=== PATIENT | male | born 1955 | race African-American/Black ===

== ENCOUNTER 2017-07-04 10:47 | Inpatient (IN) | payer MEDICARE, MEDICAID ==
[~2017-07-04] VITALS: Ht 188 cm; Wt 63.1 kg
[~2017-07-04 10:47] MED LIST: ATEN-60 PO; INSREGI SC; LEVEMIR SC; METF-372 PO; RIS1T PO
[2017-07-04] MEDS ORDERED: SODIUM CHLORIDE 0.9% 1,000 ML IV ONE (11:30)
[2017-07-04 11:43] LABS: Urine RBC None Seen /hpf (0 - 3)
[2017-07-04] MEDS ORDERED: InsuLIN REG 1unit/0.01ml Soln (100units/ml) IV ONE (11:45)
[2017-07-04 12:03] LABS: Urine Bilirubin Negative (Negative); Urine Blood Negative /uL (Negative); Urine Glucose 4+ mg/dL (Normal); Urine Ketone Negative (Negative); Urine Nitrite Negative (Negative); Urine Urobilinogen Normal (Negative)
[2017-07-04 12:06] LABS: Urine Color Straw (Yellow)
[2017-07-04 12:08] LABS: Basophils # (auto) 0 uL; Basophils % (auto) 0.4 % (0.0-2.0); Eosinophils # (auto) 0 uL; Eosinophils % (auto) 0.3 % (0.0-7.0); Hematocrit 39.6 % (41.0-53.0); Hemoglobin 12.9 g/dL (13.5-17.5); Lymphocytes # (auto) 1.9 uL; Lymphocytes % (auto) 23.1 % (10.0-50.0); Mean Corpuscular Hemoglobin 28.1 pg (28.0-32.0); Mean Corpuscular Hgb Conc. 32.7 g/dL (32.0-36.0); Mean Platelet Volume 9.5 fL (6.9-10.8); Monocytes # (auto) 0.4 uL; Neutrophils # (auto) 5.7 uL; Neutrophils % (auto) 71.2 % (37.0-80.0); Nucleated Red Blood Cells % 0.1 %; Platelet Count (auto) 200 10^3/uL (140-450); White Blood Cell 8.1 10^3/uL (4.4-10.8)
[2017-07-04 12:12] LABS: Albumin 3.7 g/dL (3.4-5.0); BUN/Creatinine Ratio 11.7; Bilirubin, Total 0.3 mg/dL (0.2-1.0); Calcium 9.2 mg/dL (8.5-10.1); Potassium 4.4 mmol/L (3.5-5.1); Total Protein 7.4 g/dL (6.4-8.2)
[2017-07-04 13:15] LABS: REFLEX LACTIC ACID YES OR NO NO
[2017-07-04 14:06] LABS: Lactic Acid w/Reflex 3.7 mmol/L (0.4-2.0)
[2017-07-04 14:10] LABS: REFLEX LACTIC ACID YES OR NO NO
[2017-07-04] MEDS ORDERED: ATENOLOL 25 MG TAB PO ONE (15:45)
[2017-07-04] MEDS ORDERED: DEXTROSE (50%) 50ML SYRG IV PRN (15:45)
[2017-07-04] MEDS: SODIUM CHLORIDE 0.9% 1,000 ML IV SCH (16:31)
[2017-07-04] MEDS: InsuLIN REG 1unit/0.01ml Soln (100units/ml) SC SCH ×2 (16:46→22:47)
[2017-07-04] MEDS: ACCU-CHEK COMFORT CURVE STRIP VI SCH ×2 (16:46→22:48)
[2017-07-04] MEDS: metFORMIN HYDROCHLORIDE 500 MG TAB PO SCH (17:59)
[2017-07-04 20:00] VITALS: BP 148/95
[2017-07-04 21:47] VITALS: BP 145/95
[2017-07-04] MEDS: INSULIN DETEMIR(LEVEMIR) 1unit/0.01ml Soln (100units/ml) SC SCH (22:47)
[2017-07-05] MEDS ORDERED: AMI25T PO (04:01)
[2017-07-05] MEDS ORDERED: ASPI81CH59 PO (04:01)
[2017-07-05 04:58] VITALS: BP 137/74
[2017-07-05] MEDS: SODIUM CHLORIDE 0.9% 1,000 ML IV SCH ×2 (05:05→18:35)
[2017-07-05 05:40] LABS: Basophils # (auto) 0.1 uL; Basophils % (auto) 0.8 % (0.0-2.0); Eosinophils # (auto) 0.2 uL; Eosinophils % (auto) 2.3 % (0.0-7.0); Hematocrit 34.6 % (41.0-53.0); Hemoglobin 11.3 g/dL (13.5-17.5); Lymphocytes # (auto) 2.9 uL; Lymphocytes % (auto) 37.6 % (10.0-50.0); Mean Corpuscular Hemoglobin 27.6 pg (28.0-32.0); Mean Corpuscular Hgb Conc. 32.5 g/dL (32.0-36.0); Mean Corpuscular Volume 84.8 fL (80.0-100.0); Mean Platelet Volume 9.6 fL (6.9-10.8); Monocytes # (auto) 0.6 uL; Monocytes % (auto) 7.5 % (0.0-12.0); Neutrophils # (auto) 4.1 uL; Neutrophils % (auto) 51.8 % (37.0-80.0); Platelet Count (auto) 184 10^3/uL (140-450); Red Cell Distribution Width 13.9 % (11.8-14.3); White Blood Cell 7.8 10^3/uL (4.4-10.8)
[2017-07-05 05:42] LABS: Calcium 8.6 mg/dL (8.5-10.1); Potassium 4.6 mmol/L (3.5-5.1)
[2017-07-05] MEDS: ACCU-CHEK COMFORT CURVE STRIP VI SCH ×4 (06:31→22:00)
[2017-07-05] MEDS: metFORMIN HYDROCHLORIDE 500 MG TAB PO SCH ×2 (06:31→17:51)
[2017-07-05] MEDS: InsuLIN REG 1unit/0.01ml Soln (100units/ml) SC SCH ×4 (06:31→22:00)
[2017-07-05 09:00] VITALS: BP 123/80
[2017-07-05] MEDS: ASPirin-EC 81 mg tab PO SCH (10:43)
[2017-07-05] MEDS: risperiDONE 1 MG TAB PO SCH (10:44)
[2017-07-05] MEDS: ATENOLOL 25 MG TAB PO SCH (10:45)
[2017-07-05] MEDS: INSULIN DETEMIR(LEVEMIR) 1unit/0.01ml Soln (100units/ml) SC SCH ×2 (10:45→22:00)
[2017-07-05 13:00] VITALS: BP 144/95
[2017-07-05 17:00] VITALS: BP 120/78
[2017-07-05 22:00] VITALS: BP 108/60
[2017-07-06 05:00] VITALS: BP 117/75
[2017-07-06] MEDS: metFORMIN HYDROCHLORIDE 500 MG TAB PO SCH (06:10)
[2017-07-06] MEDS: InsuLIN REG 1unit/0.01ml Soln (100units/ml) SC SCH ×2 (07:05→11:33)
[2017-07-06] MEDS: ACCU-CHEK COMFORT CURVE STRIP VI SCH ×2 (07:06→11:32)
[2017-07-06 09:00] VITALS: BP 146/90
[2017-07-06] MEDS: risperiDONE 1 MG TAB PO SCH (10:08)
[2017-07-06] MEDS: ASPirin-EC 81 mg tab PO SCH (10:08)
[2017-07-06] MEDS: INSULIN DETEMIR(LEVEMIR) 1unit/0.01ml Soln (100units/ml) SC SCH (10:09)
[2017-07-06] MEDS: SODIUM CHLORIDE 0.9% 1,000 ML IV SCH (10:09)
[2017-07-06] MEDS: ATENOLOL 25 MG TAB PO SCH (10:09)
[2017-07-06] MEDS ORDERED: ATE25T PO (12:10)
[2017-07-06 12:24] VITALS: BP 146/90
[2017-07-06 13:00] VITALS: BP 140/85
== END 2017-07-06 15:11 | disposition home or self-care (01) | DRG 638 ==
LOC: EDBD 10:47 → ER 11:06 → OVERFLOW 11:07 → EAST 19:30
PROVIDERS: ADMIT Internal Medicine; ATTEND Internal Medicine
DX: E11.65 Type 2 diabetes mellitus with hyperglycemia (principal); Z68.1 Body mass index [BMI] 19.9 or less, adult; F20.9 Schizophrenia, unspecified; E87.1 Hypo-osmolality and hyponatremia; I10 Essential (primary) hypertension; F17.210 Nicotine dependence, cigarettes, uncomplicated; E86.0 Dehydration; Z79.4 Long term (current) use of insulin; Z82.49 Family history of ischemic heart disease and other diseases of the circulatory system; Z83.3 Family history of diabetes mellitus; Z91.19 Patient's noncompliance with other medical treatment and regimen; R63.6 Underweight
CPT/HCPCS: 36415; 71020; 80048; 80053; 81001; 82010; 82962; 83036; 83605; 85025; 96361; 96374; 99291; J1815

== ENCOUNTER 2017-08-28 15:16 | Inpatient (IN) | payer MEDICAID, MEDICARE ==
[~2017-08-28] VITALS: Ht 188 cm; Wt 81.6 kg
[~2017-08-28 15:16] MED LIST changes: +AMI25T PO; +ASPI81CH59 PO; +ATEN25TA PO; -LEVEMIR SC
[2017-08-28] MEDS ORDERED: SODIUM CHLORIDE 0.9% 1,000 ML IV ONE ×2 (16:11)
[2017-08-28] MEDS ORDERED: InsuLIN REG 1unit/0.01ml Soln (100units/ml) IV ONE (16:15)
[2017-08-28 17:45] LABS: Basophils # (auto) 0 uL; Basophils % (auto) 0.1 % (0.0-2.0); Eosinophils # (auto) 0 uL; Hematocrit 47.5 % (41.0-53.0); Hemoglobin 15.8 g/dL (13.5-17.5); Lymphocytes # (auto) 0.9 uL; Lymphocytes % (auto) 7.5 % (10.0-50.0); Mean Corpuscular Hemoglobin 31.9 pg (28.0-32.0); Mean Corpuscular Hgb Conc. 33.4 g/dL (32.0-36.0); Mean Corpuscular Volume 95.6 fL (80.0-100.0); Monocytes # (auto) 0.7 uL; Monocytes % (auto) 6.1 % (0.0-12.0); Neutrophils # (auto) 10.6 uL; Neutrophils % (auto) 86.3 % (37.0-80.0); Nucleated Red Blood Cells % 0.1 %; Platelet Count (auto) 253 10^3/uL (140-450); Red Blood Cells 4.96 10^6/uL (4.5-5.90); Red Cell Distribution Width 15.4 % (11.8-14.3); White Blood Cell 12.2 10^3/uL (4.4-10.8)
[2017-08-28 18:02] LABS: BUN/Creatinine Ratio 13.1; Bilirubin, Total 0.5 mg/dL (0.2-1.0); Calcium 8.5 mg/dL (8.5-10.1); Potassium 3.5 mmol/L (3.5-5.1); Total Protein 7.2 g/dL (6.4-8.2)
[2017-08-28] MEDS: SODIUM CHLORIDE 0.9% 1,000 ML IV SCH (22:27)
[2017-08-28] MEDS ORDERED: HYDROcodone-ACET 5/325MG TAB PO PRN (22:30)
[2017-08-28] MEDS ORDERED: DEXTROSE (50%) 50ML SYRG IV PRN (22:30)
[2017-08-28] MEDS ORDERED: TEMAZEPAM 15 MG CAP PO PRN (22:30)
[2017-08-28] MEDS ORDERED: ACETAMINOPHEN 325 MG TAB PO PRN (22:30)
[2017-08-28] MEDS ORDERED: ONDANSETRON HCL 4 MG/2 ML VIAL IV PRN (22:30)
[2017-08-28 22:39] LABS: Urine WBC None Seen /hpf (0 - 3)
[2017-08-28 22:45] LABS: Urine Bacteria NONE SEEN /hpf (None Seen); Urine Blood Negative /uL (Negative); Urine Specific Gravity 1.024 (1.001-1.035)
[2017-08-28] MEDS: ACCU-CHEK COMFORT CURVE STRIP VI SCH (23:24)
[2017-08-28] MEDS: InsuLIN REG 1unit/0.01ml Soln (100units/ml) SC SCH (23:28)
[2017-08-28 23:40] VITALS: BP 152/87
[2017-08-29] VITALS (7 sets, daily range): BP systolic 144–157; BP diastolic 79–99
[2017-08-29] MEDS: InsuLIN REG 1unit/0.01ml Soln (100units/ml) SC SCH ×3 (04:00→11:51)
[2017-08-29] MEDS: ACCU-CHEK COMFORT CURVE STRIP VI SCH ×4 (04:15→16:00)
[2017-08-29 06:33] LABS: Basophils # (auto) 0 uL; Basophils % (auto) 0.6 % (0.0-2.0); Eosinophils # (auto) 0.1 uL; Eosinophils % (auto) 1.3 % (0.0-7.0); Hemoglobin 11.3 g/dL (13.5-17.5); Lymphocytes # (auto) 2.2 uL; Lymphocytes % (auto) 31.1 % (10.0-50.0); Mean Corpuscular Hemoglobin 27.7 pg (28.0-32.0); Mean Corpuscular Hgb Conc. 33.1 g/dL (32.0-36.0); Mean Corpuscular Volume 83.8 fL (80.0-100.0); Monocytes # (auto) 0.7 uL; Monocytes % (auto) 9.5 % (0.0-12.0); Neutrophils # (auto) 4.1 uL; Neutrophils % (auto) 57.5 % (37.0-80.0); Nucleated Red Blood Cells % 0.1 %; Platelet Count (auto) 205 10^3/uL (140-450); Red Blood Cells 4.06 10^6/uL (4.5-5.90); Red Cell Distribution Width 13.3 % (11.8-14.3); White Blood Cell 7.2 10^3/uL (4.4-10.8)
[2017-08-29 06:53] LABS: Albumin 2.9 g/dL (3.4-5.0); Calcium 8.7 mg/dL (8.5-10.1); Potassium 3.5 mmol/L (3.5-5.1)
[2017-08-29 06:56] LABS: Bilirubin, Total 0.2 mg/dL (0.2-1.0); Total Protein 5.8 g/dL (6.4-8.2)
[2017-08-29] MEDS ORDERED: ENOXAPARIN SOD 40 MG/0.4 ML SYRINGE SC SCH (10:00)
[2017-08-29] MEDS ORDERED: FAMOTIDINE 20 MG TAB PO SCH (10:00)
[2017-08-29] MEDS ORDERED: ATENOLOL 50MG TABLET PO SCH (10:00)
[2017-08-29] MEDS ORDERED: risperiDONE 1 MG TAB PO SCH (10:00)
[2017-08-29] MEDS: SODIUM CHLORIDE 0.9% 1,000 ML IV SCH (15:07)
[2017-08-29] MEDS ORDERED: AMITRIPTYLINE HCL 25 MG TAB PO SCH (22:00)
== END 2017-08-29 19:00 | disposition home or self-care (01) | DRG 637 ==
LOC: ER 15:16 → EDBD 15:16 → OVERFLOW 15:17 → WEST WING 08-29 00:04
PROVIDERS: ADMIT Nurse Practitioner; ATTEND Nurse Practitioner
DX: E11.65 Type 2 diabetes mellitus with hyperglycemia (principal); G93.41 Metabolic encephalopathy; N39.0 Urinary tract infection, site not specified; F12.90 Cannabis use, unspecified, uncomplicated; F17.210 Nicotine dependence, cigarettes, uncomplicated; F20.9 Schizophrenia, unspecified; I10 Essential (primary) hypertension; Z83.3 Family history of diabetes mellitus; Z82.49 Family history of ischemic heart disease and other diseases of the circulatory system; Z88.0 Allergy status to penicillin; Y93.89 Activity, other specified; Y92.128 Other place in nursing home as the place of occurrence of the external cause; Y99.8 Other external cause status; W22.09XA Striking against other stationary object, initial encounter
CPT/HCPCS: 36415; 70450; 71045; 80053; 81001; 82962; 85025; 93005; 96360; J1815

== ENCOUNTER 2018-06-06 10:32 | Inpatient (IN) | payer MEDICARE ==
[~2018-06-06] VITALS: Ht 185.4 cm; Wt 123.6 kg
[~2018-06-06 10:32] MED LIST changes: +ATE50T PO; -ATEN-60 PO; -ATEN25TA PO; -INSREGI SC; +LISI10TA6 PO
[2018-06-06 11:17] LABS: Basophils # (auto) 0 uL; Basophils % (auto) 0.4 % (0.0-2.0); Eosinophils # (auto) 0.1 uL; Eosinophils % (auto) 0.8 % (0.0-7.0); Hematocrit 36.4 % (41.0-53.0); Hemoglobin 11.8 g/dL (13.5-17.5); Lymphocytes # (auto) 1.9 uL; Lymphocytes % (auto) 18.5 % (10.0-50.0); Mean Corpuscular Hemoglobin 27.3 pg (28.0-32.0); Mean Corpuscular Hgb Conc. 32.6 g/dL (32.0-36.0); Mean Corpuscular Volume 83.8 fL (80.0-100.0); Monocytes # (auto) 0.6 uL; Monocytes % (auto) 5.4 % (0.0-12.0); Neutrophils # (auto) 7.8 uL; Neutrophils % (auto) 74.9 % (37.0-80.0); Platelet Count (auto) 185 10^3/uL (140-450); Red Blood Cells 4.34 10^6/uL (4.5-5.90); Red Cell Distribution Width 14.8 % (11.8-14.3); White Blood Cell 10.4 10^3/uL (4.4-10.8)
[2018-06-06 11:29] LABS: Albumin 3.4 g/dL (3.4-5.0); BUN/Creatinine Ratio 14.9; Calcium 8.7 mg/dL (8.5-10.1); Potassium 4.1 mmol/L (3.5-5.1)
[2018-06-06 11:32] LABS: Bilirubin, Total 0.3 mg/dL (0.2-1.0); Total Protein 6.7 g/dL (6.4-8.2)
[2018-06-06 13:08] LABS: Urine Bacteria NONE SEEN /hpf (None Seen); Urine Blood Negative /uL (Negative); Urine Hyaline Cast FEW /lpf (0 - 2); Urine Specific Gravity 1.014 (1.001-1.035); Urine WBC 1 /hpf (0 - 3)
[2018-06-06 13:21] LABS: Alcohol, Urine < 3.0 mg/dL (0-5); Amphetamine Screen, Urine NEGATIVE (NEGATIVE); Barbiturate Scree,Urine NEGATIVE (NEGATIVE); Benzodiazephine Screen, Urine NEGATIVE (NEGATIVE); Cannabinoid Screen, Urine NEGATIVE (NEGATIVE); Cocaine Screen, Urine NEGATIVE (NEGATIVE); Opiate Scree,Urine NEGATIVE (NEGATIVE); Phencyclidine Screen, Urine NEGATIVE (NEGATIVE)
[2018-06-06] MEDS ORDERED: ACETAMINOPHEN 500 MG TAB PO PRN (15:00)
[2018-06-06] MEDS ORDERED: LORazepam 0.5 MG TAB PO PRN (15:00)
[2018-06-06] MEDS ORDERED: DEXTROSE (50%) 50ML SYRG IV PRN (15:00)
[2018-06-06] MEDS ORDERED: LABETALOL HCL 5 MG/ML ML 20ML VIAL IV PRN (15:00)
[2018-06-06] MEDS ORDERED: ONDANSETRON HCL 4 MG/2 ML VIAL IV PRN (15:00)
[2018-06-06] MEDS ORDERED: MORPHINE SULFATE 4 MG/ML SYR/VIAL IV PRN (15:00)
[2018-06-06] MEDS ORDERED: TEMAZEPAM 15 MG CAP PO PRN (15:00)
[2018-06-06] MEDS ORDERED: NITROGLYCERIN 0.4 MG SL TAB SL PRN (15:00)
[2018-06-06] MEDS ORDERED: LACTULOSE 20Gm/30ML SOLN PO PRN (15:00)
[2018-06-06] MEDS ORDERED: ATENOLOL 25 MG TAB PO ONE (15:15)
[2018-06-06] MEDS: SODIUM CHLORIDE 0.9% 1,000 ML IV SCH (15:27)
[2018-06-06 17:00] VITALS: BP 168/98
[2018-06-06] MEDS: InsuLIN REG 1unit/0.01ml Soln (100units/ml) SC SCH ×2 (17:00→22:33)
[2018-06-06] MEDS: ACCU-CHEK COMFORT CURVE STRIP VI SCH ×2 (17:00→22:00)
[2018-06-06 20:00] VITALS: BP 147/84
[2018-06-06 22:00] VITALS: BP 147/84
[2018-06-06] MEDS: AMITRIPTYLINE HCL 25 MG TAB PO SCH (22:21)
[2018-06-06] MEDS: ATENOLOL 25 MG TAB PO SCH (22:22)
[2018-06-06] MEDS: ATORVASTATIN 20 MG TAB PO SCH (22:23)
[2018-06-06] MEDS: risperiDONE 1 MG TAB PO SCH (22:23)
[2018-06-07] VITALS (7 sets, daily range): BP systolic 139–160; BP diastolic 74–94
[2018-06-07] MEDS: SODIUM CHLORIDE 0.9% 1,000 ML IV SCH ×2 (06:27→15:56)
[2018-06-07] MEDS: ACCU-CHEK COMFORT CURVE STRIP VI SCH ×4 (06:27→22:00)
[2018-06-07] MEDS: InsuLIN REG 1unit/0.01ml Soln (100units/ml) SC SCH ×4 (06:28→22:47)
[2018-06-07 08:07] LABS: Cholesterol 106 mg/dL (< 200); HDL Cholesterol 57 mg/dL (40-59); LDL Cholesterol 48 mg/dL (< 100); Triglycerides 60 mg/dL (< 150)
[2018-06-07] MEDS ORDERED: PATIENTS OWN MEDICATION (Lisinopril 10 MG) PO SCH (10:00)
[2018-06-07] MEDS ORDERED: ATENOLOL 50 MG TAB PO SCH (10:00)
[2018-06-07] MEDS ORDERED: ENALAPRIL MALEATE 2.5 MG TAB PO SCH (10:00)
[2018-06-07] MEDS ORDERED: PATIENTS OWN MEDICATION (Aspirin (Aspirin Low Dose) 1 TAB) PO SCH (10:00)
[2018-06-07] MEDS: ASPirin 81 mg TAB PO SCH (10:00)
[2018-06-07] MEDS: traMADol HCL 50 MG TAB PO PRN ×2 (11:14→17:05)
[2018-06-07] MEDS: ENOXAPARIN SOD 40 MG/0.4 ML SYRINGE SC SCH (11:38)
[2018-06-07] MEDS: PANTOPRAZOLE 40 MG TAB PO SCH (11:39)
[2018-06-07] MEDS: LISINOPRIL 10 MG TAB PO SCH (11:40)
[2018-06-07] MEDS: ATENOLOL 25 MG TAB PO SCH ×2 (11:42→22:46)
[2018-06-07] MEDS: MEPERIDINE HCL (50 MG/ML) 1 ML VIAL IV PRN ×2 (12:05→18:00)
[2018-06-07] MEDS: ATORVASTATIN 20 MG TAB PO SCH (22:45)
[2018-06-07] MEDS: AMITRIPTYLINE HCL 25 MG TAB PO SCH (22:45)
[2018-06-07] MEDS: risperiDONE 1 MG TAB PO SCH (22:46)
[2018-06-08] VITALS (7 sets, daily range): BP systolic 126–178; BP diastolic 65–101
[2018-06-08 06:09] LABS: INR 1.03 (0.9-1.15); Partial Thromboplastin Time 25.1 sec (23.78-33.04)
[2018-06-08] MEDS: InsuLIN REG 1unit/0.01ml Soln (100units/ml) SC SCH ×4 (07:00→22:03)
[2018-06-08] MEDS: ACCU-CHEK COMFORT CURVE STRIP VI SCH ×4 (07:00→22:03)
[2018-06-08] MEDS: SODIUM CHLORIDE 0.9% 1,000 ML IV SCH ×2 (07:51→17:07)
[2018-06-08] MEDS: ENOXAPARIN SOD 40 MG/0.4 ML SYRINGE SC SCH (10:00)
[2018-06-08] MEDS: LISINOPRIL 10 MG TAB PO SCH (10:04)
[2018-06-08] MEDS: PANTOPRAZOLE 40 MG TAB PO SCH (10:06)
[2018-06-08] MEDS: ATENOLOL 25 MG TAB PO SCH ×2 (10:07→21:58)
[2018-06-08] MEDS: ASPirin 81 mg TAB PO SCH (10:14)
[2018-06-08] MEDS ORDERED: LIDOCAINE 2%HCL (LOCAL ANESTH.) INJ 10ml MDV ONE (12:29)
[2018-06-08] MEDS ORDERED: IODIXANOL 320MG/ML 100ML BTL IV ONE (12:29)
[2018-06-08] MEDS ORDERED: GLYCOPYRROLATE 0.2 MG/ML 1ML VIAL ONE (12:42)
[2018-06-08] MEDS ORDERED: ANGIOMAX 250 MG VIAL IV ONE (12:43)
[2018-06-08] MEDS ORDERED: MIDAZOLAM HCL 1MG/1ML-2 ML VIAL ONE (12:43)
[2018-06-08] MEDS ORDERED: SODIUM CHL 0.9% 0 ML ONE (12:43)
[2018-06-08] MEDS ORDERED: DOPamine 1600MCG/ML D5W 0 ML IV ONE (12:46)
[2018-06-08] MEDS ORDERED: PHENYLEPHRINE HCL 10 MG/ML VL ONE (12:46)
[2018-06-08] MEDS ORDERED: ATROPINE SULF 1 MG/10ml SYR ONE (12:46)
[2018-06-08] MEDS ORDERED: NITROGLYCERIN 0.4MG/DOSE SPRAY 4.9GM ONE (13:05)
[2018-06-08] MEDS: risperiDONE 1 MG TAB PO SCH (21:58)
[2018-06-08] MEDS: AMITRIPTYLINE HCL 25 MG TAB PO SCH (21:59)
[2018-06-08] MEDS: ATORVASTATIN 20 MG TAB PO SCH (21:59)
[2018-06-09 05:00] VITALS: BP_SYST 164; BP_SYST 165; BP_SYST 182; BP_DIAS 101; BP_DIAS 81; BP_DIAS 95
[2018-06-09] MEDS: SODIUM CHLORIDE 0.9% 1,000 ML IV SCH ×3 (05:26→21:43)
[2018-06-09] MEDS: ACCU-CHEK COMFORT CURVE STRIP VI SCH ×4 (06:28→21:38)
[2018-06-09] MEDS: InsuLIN REG 1unit/0.01ml Soln (100units/ml) SC SCH ×4 (06:32→21:38)
[2018-06-09 08:00] VITALS: BP 187/99
[2018-06-09 09:00] VITALS: BP 187/99
[2018-06-09] MEDS ORDERED: cloNIDine HCL 0.1 MG TAB PO ONE (09:00)
[2018-06-09] MEDS ORDERED: cloNIDine HCL 0.1 MG TAB ONE (09:56)
[2018-06-09] MEDS: ATENOLOL 25 MG TAB PO SCH ×2 (10:00→21:29)
[2018-06-09] MEDS: LISINOPRIL 10 MG TAB PO SCH (10:10)
[2018-06-09] MEDS: ASPirin 81 mg TAB PO SCH (10:10)
[2018-06-09] MEDS: PANTOPRAZOLE 40 MG TAB PO SCH (10:11)
[2018-06-09] MEDS: ENOXAPARIN SOD 40 MG/0.4 ML SYRINGE SC SCH (10:11)
[2018-06-09 13:00] VITALS: BP 184/95
[2018-06-09 16:50] VITALS: BP 161/89
[2018-06-09] MEDS: risperiDONE 1 MG TAB PO SCH (21:28)
[2018-06-09] MEDS: AMITRIPTYLINE HCL 25 MG TAB PO SCH (21:29)
[2018-06-09] MEDS: ATORVASTATIN 20 MG TAB PO SCH (21:29)
[2018-06-09 22:00] VITALS: BP 140/65
[2018-06-10 06:03] VITALS: BP 153/85
[2018-06-10] MEDS: ACCU-CHEK COMFORT CURVE STRIP VI SCH ×2 (06:28→11:23)
[2018-06-10] MEDS: InsuLIN REG 1unit/0.01ml Soln (100units/ml) SC SCH ×2 (06:38→11:23)
[2018-06-10 08:00] VITALS: BP 170/86
[2018-06-10 08:45] VITALS: BP 170/86
[2018-06-10] MEDS: ATENOLOL 25 MG TAB PO SCH (10:09)
[2018-06-10] MEDS: ENOXAPARIN SOD 40 MG/0.4 ML SYRINGE SC SCH (10:09)
[2018-06-10] MEDS: ASPirin 81 mg TAB PO SCH (10:09)
[2018-06-10] MEDS: LISINOPRIL 10 MG TAB PO SCH (10:09)
[2018-06-10] MEDS: PANTOPRAZOLE 40 MG TAB PO SCH (10:10)
[2018-06-10 11:41] VITALS: BP 170/86
[2018-06-10 12:15] VITALS: BP 182/98
[2018-06-10] MEDS ORDERED: cloNIDine HCL 0.1 MG TAB PO ONE (13:15)
[2018-06-10 16:01] VITALS: BP 155/89
== END 2018-06-10 16:15 | disposition home or self-care (01) | DRG 68 ==
LOC: EDBD 10:32 → EDUNIT# 10:32 → ER 10:32 → TELE 14:59 → TELE-EAST 17:20
PROVIDERS: ADMIT Internal Medicine; ATTEND Family Medicine
PROC: B3181ZZ Fluoroscopy of Bilateral Internal Carotid Arteries using Low Osmolar Contrast (ICD-10-PCS; principal; 2018-06-07)
DX: I65.21 Occlusion and stenosis of right carotid artery (principal); F31.30 Bipolar disorder, current episode depressed, mild or moderate severity, unspecified; R55 Syncope and collapse; E11.9 Type 2 diabetes mellitus without complications; F20.9 Schizophrenia, unspecified; I10 Essential (primary) hypertension; D50.8 Other iron deficiency anemias; E78.00 Pure hypercholesterolemia, unspecified; F17.210 Nicotine dependence, cigarettes, uncomplicated; F41.9 Anxiety disorder, unspecified; Z65.3 Problems related to other legal circumstances; Z82.49 Family history of ischemic heart disease and other diseases of the circulatory system; Z83.3 Family history of diabetes mellitus; Z79.899 Other long term (current) drug therapy; Z79.82 Long term (current) use of aspirin; Z88.0 Allergy status to penicillin
CPT/HCPCS: 36415; 70450; 70545; 70551; 71045; 80053; 80061; 80307; 81001; 82550; 82607; 82962; 83036; 83735; 84443; 84484; 85025; 85379; 85610; 85652; 85730; 86141; 86850; 86900; 86901; 93005; 93306; 93886; 94761; 99152; A6257; G0378; J1815; J2001; J2250; Q9967

== ENCOUNTER 2018-10-05 18:03 | Emergency (ER) | payer MEDICARE ==
[~2018-10-05] VITALS: Ht 188 cm; Wt 81.6 kg
[2018-10-05] MEDS ORDERED: SODIUM CHLORIDE 0.9% 500 ML IVB ONE (18:22)
[2018-10-05] MEDS ORDERED: cloNIDine HCL 0.1 MG TAB PO ONE (21:15)
[2018-10-05 21:30] LABS: Basophils # (auto) 0 uL; Basophils % (auto) 0.2 % (0.0-2.0); Eosinophils # (auto) 0.1 uL; Eosinophils % (auto) 0.9 % (0.0-7.0); Hematocrit 39.6 % (41.0-53.0); Hemoglobin 12.8 g/dL (13.5-17.5); Lymphocytes # (auto) 1.6 uL; Lymphocytes % (auto) 19.1 % (10.0-50.0); Mean Corpuscular Hemoglobin 27.4 pg (28.0-32.0); Mean Corpuscular Hgb Conc. 32.4 g/dL (32.0-36.0); Mean Corpuscular Volume 84.3 fL (80.0-100.0); Monocytes # (auto) 0.4 uL; Monocytes % (auto) 5.5 % (0.0-12.0); Neutrophils % (auto) 74.3 % (37.0-80.0); Platelet Count (auto) 169 10^3/uL (140-450); Red Blood Cells 4.69 10^6/uL (4.5-5.90); Red Cell Distribution Width 13.7 % (11.8-14.3); White Blood Cell 8.1 10^3/uL (4.4-10.8)
[2018-10-05 21:31] LABS: Alanine Aminotransferase 24 U/L (16-61); Albumin 3.2 g/dL (3.4-5.0); Anion Gap 6 (5-15); Aspartate Aminotransferase 12 U/L (15-37); BUN/Creatinine Ratio 11.4; Blood Urea Nitrogen 13 mg/dL (7-18); Calcium 8.2 mg/dL (8.5-10.1); Carbon Dioxide 28 mmol/L (21-32); Chloride 100 mmol/L (98-107); GFR African American 84 mL/min; GFR Non-African American 69 mL/min; Magnesium 1.9 mg/dL (1.6-2.6); Potassium 4.6 mmol/L (3.5-5.1); Sodium 134 mmol/L (136-145)
[2018-10-05 21:36] LABS: Alkaline Phosphatase 130 U/L (45-117); Bilirubin, Total 0.3 mg/dL (0.2-1.0); Total Protein 6.7 g/dL (6.4-8.2)
[2018-10-05 21:48] LABS: INR 0.98 (0.9-1.15); Partial Thromboplastin Time 22.9 sec (23.78-33.04); Prothrombin Time 10.5 sec (9.27-12.13)
[2018-10-05 21:52] VITALS: BP 163/93
[2018-10-05 21:53] LABS: Glucose 491 mg/dL (74-106)
[2018-10-05] MEDS ORDERED: InsuLIN REG 1unit/0.01ml Soln (100units/ml) IV ONE (22:15)
[2018-10-05] MEDS ORDERED: LABETALOL HCL 5 MG/ML ML 20ML VIAL IV ONE (22:15)
[2018-10-05] MEDS ORDERED: InsuLIN REG 1unit/0.01ml Soln (100units/ml) ONE (22:20)
== END 2018-10-06 00:18 | disposition home or self-care (01) ==
LOC: ER 18:03 → EDBD 18:03 → ER 10-06 00:18
DX: R53.1 Weakness (principal); I16.0 Hypertensive urgency; I10 Essential (primary) hypertension; F17.210 Nicotine dependence, cigarettes, uncomplicated; F12.10 Cannabis abuse, uncomplicated; J45.909 Unspecified asthma, uncomplicated; E11.9 Type 2 diabetes mellitus without complications; Z86.73 Personal history of transient ischemic attack (TIA), and cerebral infarction without residual deficits; Z88.0 Allergy status to penicillin
CPT/HCPCS: 36415; 71045; 80053; 82140; 82962; 83735; 84484; 85025; 85610; 85730; 93005; 96374; 99284; J1815; J7040

== ENCOUNTER 2019-01-23 11:21 | Emergency (ER) | payer SELFPAY ==
[~2019-01-23] VITALS: Ht 188 cm; Wt 81.2 kg
[2019-01-23 11:59] LABS: Basophils # (auto) 0 uL; Basophils % (auto) 0.5 % (0.0-2.0); Eosinophils # (auto) 0.1 uL; Hematocrit 36.6 % (41.0-53.0); Lymphocytes # (auto) 1.6 uL; Lymphocytes % (auto) 30.1 % (10.0-50.0); Mean Corpuscular Hemoglobin 27.6 pg (28.0-32.0); Mean Corpuscular Hgb Conc. 32.8 g/dL (32.0-36.0); Mean Corpuscular Volume 83.9 fL (80.0-100.0); Monocytes # (auto) 0.5 uL; Monocytes % (auto) 8.7 % (0.0-12.0); Neutrophils # (auto) 3.1 uL; Neutrophils % (auto) 59.7 % (37.0-80.0); Nucleated Red Blood Cells % 0.1 %; Platelet Count (auto) 170 10^3/uL (140-450); Red Blood Cells 4.35 10^6/uL (4.5-5.90); Red Cell Distribution Width 14.6 % (11.8-14.3); White Blood Cell 5.3 10^3/uL (4.4-10.8)
[2019-01-23 12:20] LABS: Albumin 3.1 g/dL (3.4-5.0); Anion Gap 5 (5-15); Blood Urea Nitrogen 11 mg/dL (7-18); Calcium 8.4 mg/dL (8.5-10.1); Carbon Dioxide 27 mmol/L (21-32); Chloride 108 mmol/L (98-107); Magnesium 1.9 mg/dL (1.6-2.6); Potassium 3.9 mmol/L (3.5-5.1); Sodium 140 mmol/L (136-145)
[2019-01-23 12:26] LABS: Alanine Aminotransferase 43 U/L (16-61); Alkaline Phosphatase 167 U/L (45-117); Aspartate Aminotransferase 20 U/L (15-37); Bilirubin, Total 0.3 mg/dL (0.2-1.0); GFR African American 87 mL/min; GFR Non-African American 72 mL/min; Total Protein 6.3 g/dL (6.4-8.2)
[2019-01-23 12:36] LABS: Glucose 477 mg/dL (74-106)
[2019-01-23 17:35] VITALS: BP 188/101
== END 2019-01-23 20:18 | disposition home or self-care (01) ==
LOC: EDBD 11:21 → ER 11:27
DX: E11.65 Type 2 diabetes mellitus with hyperglycemia (principal); J45.909 Unspecified asthma, uncomplicated; E11.9 Type 2 diabetes mellitus without complications; F17.210 Nicotine dependence, cigarettes, uncomplicated; F12.10 Cannabis abuse, uncomplicated; Z88.0 Allergy status to penicillin; Z90.89 Acquired absence of other organs
CPT/HCPCS: 36415; 71046; 80053; 82962; 83735; 84484; 85025; 93005

== ENCOUNTER 2019-02-06 15:47 | Inpatient (IN) | payer SELFPAY ==
[~2019-02-06] VITALS: Ht 188 cm; Wt 60.4 kg
[2019-02-06] MEDS ORDERED: SODIUM CHLORIDE 0.9% 1,000 ML IV ONE ×2 (16:29)
[2019-02-06] MEDS ORDERED: InsuLIN REG 1unit/0.01ml Soln (100units/ml) IV ONE (16:30)
[2019-02-06 16:55] LABS: Basophils # (auto) 0 uL; Basophils % (auto) 0.5 % (0.0-2.0); Eosinophils # (auto) 0.1 uL; Eosinophils % (auto) 0.7 % (0.0-7.0); Hematocrit 37.5 % (41.0-53.0); Hemoglobin 12.3 g/dL (13.5-17.5); Lymphocytes # (auto) 1.5 uL; Mean Corpuscular Hemoglobin 27.6 pg (28.0-32.0); Mean Corpuscular Hgb Conc. 32.9 g/dL (32.0-36.0); Mean Corpuscular Volume 83.9 fL (80.0-100.0); Monocytes # (auto) 0.4 uL; Monocytes % (auto) 5.2 % (0.0-12.0); Neutrophils # (auto) 6.3 uL; Neutrophils % (auto) 75.6 % (37.0-80.0); Nucleated Red Blood Cells % 0.1 %; Platelet Count (auto) 159 10^3/uL (140-450); Red Blood Cells 4.47 10^6/uL (4.5-5.90); Red Cell Distribution Width 14.3 % (11.8-14.3); White Blood Cell 8.3 10^3/uL (4.4-10.8)
[2019-02-06 16:57] LABS: Urine Bacteria NONE SEEN /hpf (None Seen); Urine Blood Negative /uL (Negative); Urine Specific Gravity 1.012 (1.001-1.035); Urine WBC <1 /hpf (0 - 3)
[2019-02-06 17:19] LABS: Alanine Aminotransferase 51 U/L (16-61); Albumin 3.4 g/dL (3.4-5.0); Anion Gap 8 (5-15); Blood Urea Nitrogen 13 mg/dL (7-18); Calcium 8.5 mg/dL (8.5-10.1); Carbon Dioxide 28 mmol/L (21-32); Chloride 93 mmol/L (98-107); Glucose 396 mg/dL (74-106); Sodium 129 mmol/L (136-145)
[2019-02-06 17:24] LABS: Alkaline Phosphatase 131 U/L (45-117); Aspartate Aminotransferase 18 U/L (15-37); Bilirubin, Total 0.3 mg/dL (0.2-1.0); GFR African American 89 mL/min; GFR Non-African American 74 mL/min; Total Protein 6.6 g/dL (6.4-8.2)
[2019-02-06] MEDS ORDERED: ACETAMINOPHEN 500 MG TAB PO PRN (18:30)
[2019-02-06] MEDS ORDERED: NITROGLYCERIN 0.4 MG SL TAB SL PRN (18:30)
[2019-02-06] MEDS ORDERED: MORPHINE SULF INJ 2 MG/ML SYRINGE 1ML IV PRN ×2 (18:30)
[2019-02-06] MEDS ORDERED: HYDROcodone-ACET 5/325MG TAB PO PRN (18:30)
[2019-02-06] MEDS ORDERED: ONDANSETRON HCL 4 MG/2 ML VIAL IV PRN (18:30)
[2019-02-06] MEDS: SODIUM CHLORIDE 0.9% 1,000 ML IV SCH (18:34)
--- NOTE | 2019-02-06 21:45 | NUR ---
PT ARRIVED ON UNIT PT ARRIVED TO BE 288B VIA WHEEL CHAIR PT IS A/OX4 WITH NO S/S OF DISTRESS OR SOB
[2019-02-06 21:50] VITALS: BP 162/97
--- NOTE | 2019-02-06 22:15 | NUR ---
PAGED HOSPITALIST REGARDING PTS LACK OF INSULIN SLIDING SCALE WITH ADMISSION DX OF HYPERGLYCEMIA PT IS A/OX4 WITH NO S/S OF DISTRESS, WILL CONTINUE TO MONITOR
[2019-02-06] MEDS: cloNIDine HCL 0.1 MG TAB PO PRN (22:28)
[2019-02-06] MEDS ORDERED: ARIP1TAB7 PO (22:30)
--- NOTE | 2019-02-06 22:35 | NUR ---
HOSPITALIST CALLED IMPLEMENTED MODERATE ACHS INSULIN ORDERS, AND TO TAKE BLOOD SUGAR NOW
[2019-02-06] MEDS ORDERED: DEXTROSE (50%) 50ML SYRG IV PRN (23:00)
[2019-02-06] MEDS ORDERED: InsuLIN REG 1unit/0.01ml Soln (100units/ml) SC ONE (23:45)
[2019-02-07 04:31] VITALS: BP 142/79
[2019-02-07] MEDS: SODIUM CHLORIDE 0.9% 1,000 ML IV SCH (05:44)
[2019-02-07] MEDS: ACCU-CHEK COMFORT CURVE STRIP VI SCH ×2 (06:02→12:20)
[2019-02-07] MEDS: InsuLIN REG 1unit/0.01ml Soln (100units/ml) SC SCH ×2 (06:03→12:21)
--- NOTE | 2019-02-07 07:20 | NUR ---
Opening Shift Note Assumed care of patient, awake and alert. No S/S of distress, SOB or pain. Bed in lowest and locked position with side rails up x2. Instructed on POC and to call for assist PRN, will continue to monitor for changes Q1hr and PRN.
[2019-02-07 08:57] LABS: BUN/Creatinine Ratio 12.9; Calcium 9.4 mg/dL (8.5-10.1); Potassium 4.3 mmol/L (3.5-5.1)
[2019-02-07 09:21] VITALS: BP 186/87
[2019-02-07 09:28] LABS: Basophils # (auto) 0 uL; Basophils % (auto) 0.6 % (0.0-2.0); Eosinophils # (auto) 0.2 uL; Eosinophils % (auto) 1.9 % (0.0-7.0); Hematocrit 44.3 % (41.0-53.0); Hemoglobin 14.5 g/dL (13.5-17.5); Lymphocytes # (auto) 2.4 uL; Lymphocytes % (auto) 28.7 % (10.0-50.0); Mean Corpuscular Hemoglobin 27.6 pg (28.0-32.0); Mean Corpuscular Hgb Conc. 32.8 g/dL (32.0-36.0); Mean Corpuscular Volume 84.2 fL (80.0-100.0); Monocytes # (auto) 0.4 uL; Monocytes % (auto) 4.3 % (0.0-12.0); Neutrophils # (auto) 5.5 uL; Neutrophils % (auto) 64.5 % (37.0-80.0); Platelet Count (auto) 182 10^3/uL (140-450); Red Blood Cells 5.27 10^6/uL (4.5-5.90); Red Cell Distribution Width 14.6 % (11.8-14.3); White Blood Cell 8.5 10^3/uL (4.4-10.8)
[2019-02-07] MEDS: cloNIDine HCL 0.1 MG TAB PO PRN (09:43)
[2019-02-07] MEDS ORDERED: FAMOTIDINE 20 MG TAB PO SCH (10:00)
[2019-02-07] MEDS ORDERED: OLANZapine 5 MG TAB PO SCH (10:00)
--- NOTE | 2019-02-07 13:10 | NUR ---
DR. LE AT BEDSIDE SPEAKING TO PT ABOUT POC.
[2019-02-07 13:35] VITALS: BP 145/77
--- NOTE | 2019-02-07 14:30 | NUR ---
CALLED BOARD AND CARE THAT PATIENT RESIDES. CONFIRMED THAT PATIENT STAYS AT THE BOARD AND [facility] AND NOTIFIED KORY THAT THE PATIENT IS BEING DISCHARGE.
--- NOTE | 2019-02-07 15:45 | NUR ---
Discharge instructions given as ordered. Encourage to follow up with PMD or URGENT CARE as instructed. All questions and concerns addressed. Patient verbalized understanding. Medication reconciliation form completed and copy given to patient. No Home medications held in Pharmacy. Pt denied vaccines. IV removed with catheter intact, pressure dressing applied.
--- NOTE | 2019-02-07 15:50 | NUR ---
CALLED FOR TAXI. ETA 20-30 MIN.
--- NOTE | 2019-02-07 16:27 | NUR ---
Patient taken to taxi via wheelchair with all personal belongings, accompanied by staff. No distress noted at time of departure.
[2019-02-07] MEDS ORDERED: InsuLIN REG 1unit/0.01ml Soln (100units/ml) SC SCH (22:00)
== END 2019-02-07 16:35 | disposition home or self-care (01) | DRG 638 ==
LOC: ER 15:47 → OVERFLOW 15:48 → WEST WING 21:53
PROVIDERS: ADMIT Nurse Practitioner Acute Care; ATTEND Nurse Practitioner Acute Care
DX: E11.65 Type 2 diabetes mellitus with hyperglycemia (principal); J98.11 Atelectasis; E86.0 Dehydration; K21.9 Gastro-esophageal reflux disease without esophagitis; F25.9 Schizoaffective disorder, unspecified; D64.9 Anemia, unspecified; I10 Essential (primary) hypertension; F17.210 Nicotine dependence, cigarettes, uncomplicated; Z88.0 Allergy status to penicillin; Z79.84 Long term (current) use of oral hypoglycemic drugs; Z79.899 Other long term (current) drug therapy; Z90.89 Acquired absence of other organs; Z82.49 Family history of ischemic heart disease and other diseases of the circulatory system; Z83.3 Family history of diabetes mellitus; Z79.82 Long term (current) use of aspirin; Z72.89 Other problems related to lifestyle
CPT/HCPCS: 36415; 71045; 80048; 80053; 81001; 82962; 83036; 84484; 85025; 96361; 96374; G0378; J1815

== ENCOUNTER 2019-04-14 14:50 | Emergency (ER) | payer SELFPAY ==
[~2019-04-14] VITALS: Ht 185.4 cm; Wt 68.0 kg
[~2019-04-14 14:50] MED LIST changes: +ARIP1TAB7 PO
[2019-04-14 16:39] LABS: Basophils # (auto) 0 uL; Basophils % (auto) 0.6 % (0.0-2.0); Eosinophils # (auto) 0.1 uL; Eosinophils % (auto) 2.1 % (0.0-7.0); Hemoglobin 12.1 g/dL (13.5-17.5); Lymphocytes # (auto) 2.3 uL; Lymphocytes % (auto) 36.1 % (10.0-50.0); Mean Corpuscular Hemoglobin 28.5 pg (28.0-32.0); Mean Corpuscular Hgb Conc. 33.8 g/dL (32.0-36.0); Mean Corpuscular Volume 84.4 fL (80.0-100.0); Monocytes # (auto) 0.4 uL; Neutrophils # (auto) 3.6 uL; Neutrophils % (auto) 55.2 % (37.0-80.0); Nucleated Red Blood Cells % 0.1 %; Platelet Count (auto) 178 10^3/uL (140-450); Red Blood Cells 4.26 10^6/uL (4.5-5.90); Red Cell Distribution Width 13.9 % (11.8-14.3); White Blood Cell 6.5 10^3/uL (4.4-10.8)
[2019-04-14 16:58] LABS: Albumin 3.4 g/dL (3.4-5.0); BUN/Creatinine Ratio 18.1; Calcium 8.1 mg/dL (8.5-10.1); Potassium 4.1 mmol/L (3.5-5.1)
[2019-04-14 17:00] LABS: Bilirubin, Total 0.4 mg/dL (0.2-1.0); Total Protein 6.4 g/dL (6.4-8.2)
[2019-04-14 21:48] VITALS: BP 171/98
== END 2019-04-14 22:49 | disposition home or self-care (01) ==
LOC: EDBD 14:50 → ER 15:00
DX: E11.65 Type 2 diabetes mellitus with hyperglycemia (principal); D64.9 Anemia, unspecified; R53.1 Weakness; F17.210 Nicotine dependence, cigarettes, uncomplicated; F12.10 Cannabis abuse, uncomplicated; I10 Essential (primary) hypertension; Z88.0 Allergy status to penicillin
CPT/HCPCS: 36415; 71045; 80053; 82962; 84484; 85025; 93005

== ENCOUNTER 2019-07-06 19:14 | Inpatient (IN) | payer MEDICARE, MEDICAID ==
[~2019-07-06] VITALS: Ht 185.4 cm; Wt 65.0 kg
[2019-07-06] MEDS ORDERED: SODIUM CHLORIDE 0.9% 500 ML IVB ONE (19:31)
[2019-07-06 20:07] LABS: Basophils # (auto) 0 uL; Basophils % (auto) 0.4 % (0.0-2.0); Eosinophils # (auto) 0.1 uL; Hematocrit 34.4 % (41.0-53.0); Hemoglobin 11.6 g/dL (13.5-17.5); Lymphocytes # (auto) 1.4 uL; Lymphocytes % (auto) 17.4 % (10.0-50.0); Mean Corpuscular Hgb Conc. 33.9 g/dL (32.0-36.0); Mean Corpuscular Volume 82.6 fL (80.0-100.0); Monocytes # (auto) 0.5 uL; Monocytes % (auto) 6.2 % (0.0-12.0); Neutrophils # (auto) 6.2 uL; Nucleated Red Blood Cells % 0.1 %; Platelet Count (auto) 160 10^3/uL (140-450); Red Blood Cells 4.16 10^6/uL (4.5-5.90); Red Cell Distribution Width 13.3 % (11.8-14.3); White Blood Cell 8.3 10^3/uL (4.4-10.8)
--- NOTE | 2019-07-06 20:22 | NUR ---
Got report from INFORMATICS APPLICATION ANALYSTWILLA Grady
[2019-07-06 20:23] LABS: Anion Gap 6 (5-15); Blood Alcohol < 3.0 mg/dL (0-5); Blood Urea Nitrogen 22 mg/dL (7-18); Calcium 7.9 mg/dL (8.5-10.1); Carbon Dioxide 23 mmol/L (21-32); Chloride 112 mmol/L (98-107); Glucose 262 mg/dL (74-106); Potassium 4.1 mmol/L (3.5-5.1); Sodium 141 mmol/L (136-145)
[2019-07-06 20:25] LABS: BUN/Creatinine Ratio 19.1; GFR African American 83 mL/min; GFR Non-African American 68 mL/min
[2019-07-06 20:30] LABS: Alanine Aminotransferase 34 U/L (16-61); Alkaline Phosphatase 113 U/L (45-117); Aspartate Aminotransferase 23 U/L (15-37); Bilirubin, Total 0.3 mg/dL (0.2-1.0); Total Protein 6.1 g/dL (6.4-8.2)
[2019-07-06] MEDS ORDERED: ONDANSETRON HCL 4 MG/2 ML VIAL IV PRN (21:45)
[2019-07-06] MEDS ORDERED: DEXTROSE (50%) 50ML SYRG IV PRN (21:45)
[2019-07-06] MEDS ORDERED: TEMAZEPAM 15 MG CAP PO PRN (21:45)
[2019-07-06] MEDS ORDERED: MORPHINE SULF INJ 2 MG/ML SYRINGE 1ML IV PRN (21:45)
[2019-07-06] MEDS ORDERED: NITROGLYCERIN 0.4 MG SL TAB SL PRN (21:45)
[2019-07-06] MEDS ORDERED: ACETAMINOPHEN 325 MG TAB PO PRN (21:45)
[2019-07-06 21:50] LABS: Urine Bacteria NONE SEEN /hpf (None Seen); Urine Blood Negative /uL (Negative); Urine Specific Gravity 1.022 (1.001-1.035); Urine WBC 1 /hpf (0 - 3)
[2019-07-06 21:54] LABS: Alcohol, Urine < 3.0 mg/dL (0-5); Amphetamine Screen, Urine NEGATIVE (NEGATIVE); Barbiturate Scree,Urine NEGATIVE (NEGATIVE); Benzodiazephine Screen, Urine NEGATIVE (NEGATIVE); Cannabinoid Screen, Urine NEGATIVE (NEGATIVE); Cocaine Screen, Urine NEGATIVE (NEGATIVE); Opiate Scree,Urine NEGATIVE (NEGATIVE); Phencyclidine Screen, Urine NEGATIVE (NEGATIVE)
[2019-07-06 22:38] VITALS: BP_SYST 153; BP_SYST 160; BP_DIAS 77; BP_DIAS 91
--- NOTE | 2019-07-06 23:28 | NUR ---
Telemetry admit from [facility] FLETCHERJOSE Shepard admitted to Telemetry unit after SBAR received. Patient oriented to NICHELLE LAURENT, RN primary RN, unit, room, bed, and unit policies regarding patient care and visiting hours. Patient now on continuous telemetry monitoring, tele box #59 and telemetry reading on arrival to unit is SR97 . Patient weighed by bedscale and encouraged to call if they need something. All questions and concerns addressed, patient verbalized understanding. No signs of distress or pain. Patient ask for food because he was hungry. A evangelista will be adminster. Cleaned patient due to BM smell. He had old stool in his boxers and anus. Offered to throw away his boxer and patient agreed.
[2019-07-06] MEDS: AMITRIPTYLINE HCL 25 MG TAB PO SCH (23:30)
[2019-07-06] MEDS: ACCU-CHEK COMFORT CURVE STRIP VI SCH (23:30)
[2019-07-06] MEDS: InsuLIN REG 1unit/0.01ml Soln (100units/ml) SC SCH (23:30)
[2019-07-06] MEDS: FAMOTIDINE 20 MG TAB PO SCH (23:30)
[2019-07-07] VITALS (8 sets, daily range): BP systolic 112–181; BP diastolic 70–101
[2019-07-07] MEDS ORDERED: INFLUENZA QUAD 2019-2020 0.5ml SYRG IM ONE
[2019-07-07] MEDS: InsuLIN REG 1unit/0.01ml Soln (100units/ml) SC SCH ×3 (06:04→19:03)
[2019-07-07] MEDS: ACCU-CHEK COMFORT CURVE STRIP VI SCH ×3 (06:04→19:03)
--- NOTE | 2019-07-07 06:10 | NUR ---
LAC '18 IV removal IV DC'd with clean sterile technique, catheter fully intact. Pressure dressing applied to site. Patient tolerated well.
--- NOTE | 2019-07-07 06:40 | NUR ---
Library Science Professor Christian called from [place] to give information about patient. Informed that patient is a smoker, uses pulls ups due to stool incontinence, and patient has an ankle bracelet that needs to be charge for 1 hour in the morning and night.
--- NOTE | 2019-07-07 06:52 | NUR ---
Page hospitalist to inform about patient high blood pressure of 171/114 and heart rate 90. Hospitalist Kurt gave orders to give morning medication early. Repeated orders to verify. Will follow as instructed.
[2019-07-07] MEDS: AMITRIPTYLINE HCL 25 MG TAB PO SCH ×2 (06:57→22:03)
[2019-07-07] MEDS: FAMOTIDINE 20 MG TAB PO SCH ×2 (06:58→22:03)
[2019-07-07] MEDS: ATENOLOL 50 MG TAB PO SCH (06:59)
[2019-07-07] MEDS: risperiDONE 1 MG TAB PO SCH (07:02)
[2019-07-07] MEDS: LISINOPRIL 10 MG TAB PO SCH (07:03)
[2019-07-07 07:04] LABS: BUN/Creatinine Ratio 22.1; Calcium 8.7 mg/dL (8.5-10.1); Potassium 4.2 mmol/L (3.5-5.1)
--- NOTE | 2019-07-07 09:30 | NUR ---
BLOOD PRESSURE RECHECK BLOOD PRESSURE IS NOW 140/83 mm/Hg
--- NOTE | 2019-07-07 09:54 | NUR ---
PATIENT TO [facility], SITTER ROOM ALL BELONGINGS TRANSFERRED TO PATIENT'S NEW ROOM AND CALLED TELEMETRY TO CHANGE ROOM NUMBERS ON TELE BOX. SPOKE WITH MCKENNA IN [place]. PATIENT HAS NO SYMPTOMS OF DISTRESS. WILL CONTINUE TO MONITOR.
[2019-07-07] MEDS ORDERED: ASPirin 81 mg TAB PO ONE (10:45)
[2019-07-07 11:07] LABS: Free T4 (Free Thyroxine) 0.99 ng/dL (0.89-1.76)
[2019-07-07 11:08] LABS: Folate (Folic Acid) 17.93 ng/mL (5.38-24)
[2019-07-07 11:09] LABS: Cholesterol 127 mg/dL (< 200); HDL Cholesterol 79 mg/dL (40-59); LDL Cholesterol 40 mg/dL (< 100); Triglycerides 48 mg/dL (< 150)
--- NOTE | 2019-07-07 19:30 | NUR ---
RECEIVED PATIENT FROM DAY SHIFT RN. PATIENT RESTING IN BED. NO S/S OF DISTRESS NOTED. DENIED PAIN FOR NOW. POC INSTRUCTED AND ENCOURAGED PATIENT TO CALL FOR [employer] IF NEEDED. BED IN LOWEST POSITION WITH SIDE RAILS UP X 2. CALL WOMACK WITHIN REACH. ALARM ON. SITTER AT BEDSIDE FOR SAFETY. CONTINUE TO MONITOR FOR CHANGES Q1H AND PRN.
[2019-07-07] MEDS: ATORVASTATIN 20 MG TAB PO SCH (22:03)
--- NOTE | 2019-07-07 22:03 | NUR ---
ORAL MEDICATIONS ADMINISTERED ORDERED. PATIENT SWALLOWED WELL. NO S/S OF ASPIRATION NOTED. CONTINUE TO MONITOR.
--- NOTE | 2019-07-08 | NUR ---
PATIENT WET HIS BED WHEN USING URINAL. PARTIAL BED LINEN CHANGED. CONTINUE TO MONITOR.
[2019-07-08] MEDS: ACCU-CHEK COMFORT CURVE STRIP VI SCH ×4 (00:18→18:04)
[2019-07-08] MEDS: InsuLIN REG 1unit/0.01ml Soln (100units/ml) SC SCH ×4 (00:18→18:04)
--- NOTE | 2019-07-08 00:30 | NUR ---
ACCU-CHECK, BS 240. INSULIN GIVEN ORDERED. CONTINUE TO MONITOR.
--- NOTE | 2019-07-08 03:53 | NUR ---
PATIENT SLEEPING. NO S/S OF DISTRESS NOTED. CONTINUE TO MONITOR.
[2019-07-08 05:00] VITALS: BP 115/66
--- NOTE | 2019-07-08 06:03 | NUR ---
ACCU-CHECK, BS 68. JUICE AND SNACK GIVEN TO INCREASE THE BS. CONTINUE TO MONITOR.
[2019-07-08 08:49] VITALS: BP 134/75
[2019-07-08] MEDS: risperiDONE 1 MG TAB PO SCH (10:20)
[2019-07-08] MEDS: FAMOTIDINE 20 MG TAB PO SCH ×2 (10:20→21:35)
[2019-07-08] MEDS: ASPirin 81 mg TAB PO SCH (10:20)
[2019-07-08] MEDS: LISINOPRIL 10 MG TAB PO SCH (10:21)
[2019-07-08] MEDS: ATENOLOL 50 MG TAB PO SCH (10:21)
[2019-07-08 13:00] VITALS: BP 145/74
[2019-07-08 14:00] LABS: Hepatitis B Surface Antibody Positive
[2019-07-08 14:33] LABS: Hepatitis B Surface Antigen Negative (Negative)
[2019-07-08 14:37] LABS: Hepatitis A Total Antibody Negative
[2019-07-08 15:39] LABS: Hepatitis B Core Total AB Negative; Hepatitis C Antibody Negative (Negative)
[2019-07-08 17:00] VITALS: BP 187/88
--- NOTE | 2019-07-08 19:59 | NUR ---
RECEIVED PATIENT FROM DAY SHIFT RN. PATIENT RESTING IN BED. NO S/S OF DISTRESS NOTED. DENIED PAIN FOR NOW. PATIENT ASKING FOR FOOD AGAIN NOW. INSTRUCTED THAT HIS BS WAS TOO HIGH. NEED TO WAITING FOR BS LOWER. WILL COME BACK TO CHECK HIS BS LATER. PATIENT VERBALIZED UNDERSTANDING. POC INSTRUCTED AND ENCOURAGED PATIENT TO CALL FOR REPRINT SORTER IF NEEDED. BED IN LOWEST POSITION WITH SIDE RAILS UP X 2. CALL WOMACK WITHIN REACH. ALARM ON. SITTER AT BEDSIDE FOR SAFETY. CONTINUE TO MONITOR FOR CHANGES Q1H AND PRN.
[2019-07-08 21:34] VITALS: BP 163/71
[2019-07-08] MEDS: ATORVASTATIN 20 MG TAB PO SCH (21:34)
[2019-07-08] MEDS: AMITRIPTYLINE HCL 25 MG TAB PO SCH (21:35)
--- NOTE | 2019-07-08 22:10 | NUR ---
ORAL MEDICATIONS ADMINISTERED ORDERED. PATIENT SWALLOWED WELL. NO S/S OF ASPIRATION NOTED. CONTINUE TO MONITOR.
[2019-07-09] MEDS: InsuLIN REG 1unit/0.01ml Soln (100units/ml) SC SCH ×4 (00:11→18:02)
[2019-07-09] MEDS: ACCU-CHEK COMFORT CURVE STRIP VI SCH ×4 (00:11→18:04)
--- NOTE | 2019-07-09 00:20 | NUR ---
ACCU-CHECK, BS 161. INSULIN GIVEN ORDERED. CONTINUE TO MONITOR.
--- NOTE | 2019-07-09 02:06 | NUR ---
PATIENT SLEEPING. NO S/S OF DISTRESS NOTED. CONTINUE TO MONITOR.
[2019-07-09 04:57] VITALS: BP 162/68
--- NOTE | 2019-07-09 06:07 | NUR ---
ACCU-CHECK, BS 175. INSULIN GIVEN ORDERED. CONTINUE TO MONITOR.
--- NOTE | 2019-07-09 07:20 | NUR ---
RECEIVED PT LYING IN BED COMFORTABLY AAOX3, PLEASANT AND COOPERATIVE AND VOICED NO C/O PAIN/ DISCOMFORT AND PT WAS IN N DISTRESS. SHIFT ASSESSMENT DONE AND CHARTED. PLAN OF CARE, MEDS, TREATMENTS AND SAFETY DISCUSSED WITH PT AND PT VERBALIZED UNDERSTANDING. BED WAS IN LOWEST POSITION WITH BRAKES ON, SIDERAILS UP X2 AND CALL LIGHT WITHIN PT'S REACH. SITTER PRESENT AT BEDSIDE. WILL CONTINUE TO MONITOR PT.
[2019-07-09] MEDS: risperiDONE 1 MG TAB PO SCH (10:06)
[2019-07-09] MEDS: ATENOLOL 50 MG TAB PO SCH (10:07)
[2019-07-09] MEDS: ASPirin 81 mg TAB PO SCH (10:08)
[2019-07-09] MEDS: FAMOTIDINE 20 MG TAB PO SCH ×2 (10:09→21:38)
[2019-07-09] MEDS: LISINOPRIL 10 MG TAB PO SCH (10:09)
--- NOTE | 2019-07-09 19:40 | NUR ---
Opening Shift Note Assumed care of patient, awake and alert. No S/S of distress/SOB or pain. Bed in lowest locked position, side rails up x2, call light within reach, sitter at bedside. Instructed on POC and to call for assist PRN, will continue to monitor for changes Q1hr and PRN.
[2019-07-09] MEDS: ATORVASTATIN 20 MG TAB PO SCH (21:39)
[2019-07-09] MEDS: AMITRIPTYLINE HCL 25 MG TAB PO SCH (21:39)
[2019-07-09 22:00] VITALS: BP 136/82
[2019-07-10] MEDS: ACCU-CHEK COMFORT CURVE STRIP VI SCH ×4 (00:44→17:39)
[2019-07-10] MEDS: InsuLIN REG 1unit/0.01ml Soln (100units/ml) SC SCH ×4 (00:45→17:39)
[2019-07-10 05:31] VITALS: BP 115/68
--- NOTE | 2019-07-10 07:30 | NUR ---
Closing Note Patient lying in bed, awake and alert. Bed in lowest locked position, side rails up x2, call light within reach, sitter at bedside. No s/s of distress. Care endorsed to dayshift RN.
[2019-07-10 08:00] VITALS: BP 157/77
[2019-07-10 09:00] VITALS: BP 147/84
[2019-07-10] MEDS: risperiDONE 1 MG TAB PO SCH (10:28)
[2019-07-10] MEDS: ATENOLOL 50 MG TAB PO SCH (10:29)
[2019-07-10] MEDS: FAMOTIDINE 20 MG TAB PO SCH ×2 (10:29→20:50)
[2019-07-10] MEDS: ASPirin 81 mg TAB PO SCH (10:29)
[2019-07-10] MEDS: LISINOPRIL 10 MG TAB PO SCH (10:30)
--- NOTE | 2019-07-10 11:48 | NUR ---
Nutrition Assessment Notes please see attached link for complete assessment Est. Needs IBW 83 [id number] kcal (25-30 kcal/kgBW), 83-99 gms pro (1.0-1.2 gms/kgIBW). Will continue to monitor pertinent labs and reassess nutrient need prn Addendum: 07/10/19 at [address] Amended: Links added.
[2019-07-10 13:30] VITALS: BP 138/78
[2019-07-10 17:00] VITALS: BP 160/84
--- NOTE | 2019-07-10 19:20 | NUR ---
Opening Shift Note Assumed care of patient, awake and alert. No S/S of distress/SOB or pain. Bed in lowest locked position, side rails up x2, call light within reach, sitter at bedside. Offered to change patient's IV to comply with hospital protocol, patient refusing at this time. Patient educated on importance of changing IV to reduce risk for infection,patient continuing to refuse. IV site asymptomatic and IV patient. Instructed on POC and to call for assist PRN, will continue to monitor for changes Q1hr and PRN.
[2019-07-10] MEDS: ATORVASTATIN 20 MG TAB PO SCH (20:50)
[2019-07-10] MEDS: AMITRIPTYLINE HCL 25 MG TAB PO SCH (20:50)
[2019-07-11] VITALS (8 sets, daily range): BP systolic 133–159; BP diastolic 73–84
[2019-07-11] MEDS: ACCU-CHEK COMFORT CURVE STRIP VI SCH ×4 (00:34→17:29)
[2019-07-11] MEDS: InsuLIN REG 1unit/0.01ml Soln (100units/ml) SC SCH ×4 (00:36→17:29)
--- NOTE | 2019-07-11 00:36 | NUR ---
Blood sugar 68, brought patient a sandwich and juice. Patient tolerated well. Will continue care.
[2019-07-11] MEDS: FAMOTIDINE 20 MG TAB PO SCH ×2 (10:05→22:10)
[2019-07-11] MEDS: ASPirin 81 mg TAB PO SCH (10:06)
[2019-07-11] MEDS: ATENOLOL 50 MG TAB PO SCH (10:06)
[2019-07-11] MEDS: risperiDONE 1 MG TAB PO SCH (10:06)
[2019-07-11] MEDS: LISINOPRIL 10 MG TAB PO SCH (10:06)
--- NOTE | 2019-07-11 19:35 | NUR ---
Opening Shift Note Assumed care of patient, awake and alert. No S/S of distress/SOB or pain. Bed in lowest locked position, side rails up x2, call light within reach, sitter at bedside. Patient still refusing to have IV changed despite education on hospital policy. IV site remains asymptomatic and IV patient. Instructed on POC and to call for assist PRN, will continue to monitor for changes Q1hr and PRN.
[2019-07-11] MEDS: AMITRIPTYLINE HCL 25 MG TAB PO SCH (22:09)
[2019-07-11] MEDS: ATORVASTATIN 20 MG TAB PO SCH (22:10)
[2019-07-12] MEDS: InsuLIN REG 1unit/0.01ml Soln (100units/ml) SC SCH ×5 (01:11→23:54)
[2019-07-12] MEDS: ACCU-CHEK COMFORT CURVE STRIP VI SCH ×5 (01:11→23:54)
--- NOTE | 2019-07-12 07:30 | NUR ---
Opening Shift Note Assumed care of patient, awake and alert. No S/S of distress/SOB or pain. For safety bed is locked , in the lowest position with 2 side rails up. Instructed on POC and to call for assist PRN, will continue to monitor for changes in condition. Patient has a sitter at bedside.
[2019-07-12] MEDS: FAMOTIDINE 20 MG TAB PO SCH ×2 (10:00→22:43)
[2019-07-12] MEDS: ATENOLOL 50 MG TAB PO SCH (10:00)
[2019-07-12] MEDS: ASPirin 81 mg TAB PO SCH (10:00)
[2019-07-12] MEDS: LISINOPRIL 10 MG TAB PO SCH (10:00)
[2019-07-12] MEDS: risperiDONE 1 MG TAB PO SCH (10:00)
[2019-07-12] MEDS ORDERED: ADENOSINE 55 MG in GIVE UN-DILUTED 0 ML IV STA (10:29)
[2019-07-12 10:54] VITALS: BP 179/92
[2019-07-12 16:12] VITALS: BP 159/84
--- NOTE | 2019-07-12 16:40 | NUR ---
assessment Patient is a 64 year old male who is alert and answering appropriately. Patients cognitive abilities are intact. Prior to admission patient lived home with family and functioned with assistance. Per patient he will return home to his prior living arrangements post discharge and will need a taxi voucher on discharge. Patient informed me he has no need for DME. Patients PCP is Dr Oro. I informed patient he has a consult for home safety eval and medication management. Patient has been provided with a list of medicare providers. Per patient he has no preference. MD order has been sent to [facility]. Per [facility] service will start on 07/13/19, Patient has been notified. I informed patient he has a right to speak to a social media project manager regarding all care. I informed patient he has a right to participate in any and all discharge planning. Patient does not have a POA and advanced directive. I have offered patient information on POA and advanced directives. I informed the patient the advantages and benefits of having an Advanced Directive. Patient verbalized understanding and agreed to discharge plan. Addendum: 07/12/19 at 1649 by Kiera BURCH Amended: Links added.
[2019-07-12] MEDS ORDERED: cloNIDine HCL 0.1 MG TAB PO PRN (18:15)
[2019-07-12] MEDS ORDERED: cloNIDine HCL 0.1 MG TAB PO ONE (18:15)
--- NOTE | 2019-07-12 19:20 | NUR ---
Opening Shift Note Received report from Lois CROUCH. Assumed care of patient, awake and alert, sitter at bedside for safety. No S/S of distress/SOB or pain. Instructed on POC and to call for assist PRN. Fall precaution measures in place, will continue to monitor for changes Q1hr and PRN.
[2019-07-12 21:54] VITALS: BP 111/52
[2019-07-12] MEDS: ATORVASTATIN 20 MG TAB PO SCH (22:42)
[2019-07-12] MEDS: AMITRIPTYLINE HCL 25 MG TAB PO SCH (22:42)
[2019-07-12] MEDS: SODIUM CHLORIDE 0.9% 1,000 ML IV SCH (23:54)
--- NOTE | 2019-07-12 23:57 | NUR ---
Patient's blood sugar is 557, repeated 537. Protocol done, hospitalist Kurt made aware. Will continue to monitor.
--- NOTE | 2019-07-13 01:39 | NUR ---
Patient requested the nurse to come to the room and inquire about how long is he gonna be on IV fluids. The nurse then replied until the procedure is done. Suddenly the patient became aggressive with all the bad words coming out. RN tried to explain but the more patient becoming aggressive and violent. Security was called and retail warehouse supervisor Jose Antonio is also in explaining but the patient is not listening and kept yelling. We end up removing the IV fluid and the patient started to calm down. Patient has a sitter at bedside and will continue to monitor.
--- NOTE | 2019-07-13 04:46 | NUR ---
Patient refused vital signs check, EKG and tele box battery change.
--- NOTE | 2019-07-13 05:32 | NUR ---
Brand Marketing Manager informed RN that patient wanted his blood draw to be done later.
[2019-07-13 05:49] LABS: Basophils # (auto) 0 uL; Basophils % (auto) 0.4 % (0.0-2.0); Eosinophils # (auto) 0.2 uL; Hematocrit 36.8 % (41.0-53.0); Hemoglobin 12.5 g/dL (13.5-17.5); Lymphocytes # (auto) 2.1 uL; Lymphocytes % (auto) 26.1 % (10.0-50.0); Mean Corpuscular Hemoglobin 28.2 pg (28.0-32.0); Mean Corpuscular Hgb Conc. 33.9 g/dL (32.0-36.0); Mean Corpuscular Volume 83.1 fL (80.0-100.0); Monocytes # (auto) 0.8 uL; Monocytes % (auto) 9.9 % (0.0-12.0); Neutrophils # (auto) 4.9 uL; Neutrophils % (auto) 61.6 % (37.0-80.0); Nucleated Red Blood Cells % 0.1 %; Red Blood Cells 4.42 10^6/uL (4.5-5.90); Red Cell Distribution Width 13.1 % (11.8-14.3)
[2019-07-13 05:50] LABS: Platelet Count (auto) 189 10^3/uL (140-450)
--- NOTE | 2019-07-13 06:00 | NUR ---
Latest blood sugar is 220.
[2019-07-13 06:09] LABS: Potassium 4.5 mmol/L (3.5-5.1)
[2019-07-13 06:10] LABS: INR 1.12 (0.9-1.15); Partial Thromboplastin Time 25.4 sec (23.64-32.05)
[2019-07-13] MEDS: InsuLIN REG 1unit/0.01ml Soln (100units/ml) SC SCH ×4 (06:13→23:48)
[2019-07-13] MEDS: ACCU-CHEK COMFORT CURVE STRIP VI SCH ×4 (06:13→23:48)
[2019-07-13 06:15] LABS: BUN/Creatinine Ratio 32.4; Calcium 8.5 mg/dL (8.5-10.1)
--- NOTE | 2019-07-13 06:51 | NUR ---
Patient refused to sign the anesthesia form and IV fluid.
--- NOTE | 2019-07-13 07:30 | NUR ---
Opening Shift Note Assumed care of patient, awake and alert. No S/S of distress/SOB or pain. For safety patients bed is locked, in the lowest position with 2 side rails up. Patient has sitter at bedside. Instructed on POC and to call for assist PRN, will continue to monitor for changes in condition.
[2019-07-13 09:00] VITALS: BP 160/96
[2019-07-13] MEDS: FAMOTIDINE 20 MG TAB PO SCH ×2 (10:00→22:09)
[2019-07-13] MEDS: ATENOLOL 50 MG TAB PO SCH (10:12)
[2019-07-13] MEDS: LISINOPRIL 10 MG TAB PO SCH (10:12)
[2019-07-13] MEDS: risperiDONE 1 MG TAB PO SCH (10:12)
[2019-07-13] MEDS: ASPirin 81 mg TAB PO SCH (10:14)
--- NOTE | 2019-07-13 11:30 | NUR ---
PATIENTS ENGINE DISPATCHER, STEPH OLIVAS, HERE TO CHARGE ANKLE BRACELET. SPOKE WITH PATIENT REGARDING THE PACEMAKER PLACEMENT AND HELPED HIM UNDERSTAND THE IMPORTANCE OF THE PROCEDURE TO BE DONE. STEPH OLIVAS STATED HE HAS KNOWN FOR A COUPLE YEARS AND UNDERSTANDS HIM. PATIENT AGREED TO SIGN CONSENT WHILE ENGINE DISPATCHER WAS PRESENT. STEPH OLIVAS PHONE NUMBER IS . I ALSO CONFIRMED PATIENTS ADDRESS WITH HIM PATIENT LIVES IN A SOBER [facility]ACILITY NAM[facility] WHERE KORY IS THE HOSPITAL STAFF PHARMACIST. [facility] NUMBER WAS ALSO CONFIRMED WITH STEPH OLIVAS. [facility] NUMBER IS
[2019-07-13 13:00] VITALS: BP 155/78
[2019-07-13] MEDS: SODIUM CHLORIDE 0.9% 1,000 ML IV SCH (16:45)
[2019-07-13 17:41] VITALS: BP 162/77
[2019-07-13] MEDS ORDERED: SODIUM CHLORIDE 0.9% 1,000 ML IV SCH (18:44)
--- NOTE | 2019-07-13 19:10 | NUR ---
Opening Shift Note Assumed care of patient, awake and alert. No S/S of distress/SOB or pain. For safety patients bed is locked, in the lowest position with 2 side rails up. Patient has sitter at bedside. Instructed on POC and to call for assist PRN, will continue to monitor for changes in condition. Signed: 07/14/19 at 0516 by SURI TAPIA SN <Co-Signature Required> Co-Signed: 07/14/19 at 0516 by Porter Howell RN
[2019-07-13 21:40] VITALS: BP 121/55
[2019-07-13] MEDS: ATORVASTATIN 20 MG TAB PO SCH (22:08)
[2019-07-13] MEDS: AMITRIPTYLINE HCL 25 MG TAB PO SCH (22:08)
[2019-07-14 04:57] VITALS: BP 138/79
[2019-07-14] MEDS: InsuLIN REG 1unit/0.01ml Soln (100units/ml) SC SCH ×2 (05:36→12:00)
[2019-07-14] MEDS: ACCU-CHEK COMFORT CURVE STRIP VI SCH ×2 (05:36→12:00)
[2019-07-14 05:53] LABS: Basophils # (auto) 0 uL; Basophils % (auto) 0.4 % (0.0-2.0); Eosinophils # (auto) 0.2 uL; Eosinophils % (auto) 2.8 % (0.0-7.0); Hematocrit 37.8 % (41.0-53.0); Hemoglobin 12.3 g/dL (13.5-17.5); Lymphocytes # (auto) 2.2 uL; Lymphocytes % (auto) 30.7 % (10.0-50.0); Mean Corpuscular Hemoglobin 27.6 pg (28.0-32.0); Mean Corpuscular Hgb Conc. 32.6 g/dL (32.0-36.0); Mean Corpuscular Volume 84.7 fL (80.0-100.0); Monocytes # (auto) 0.7 uL; Monocytes % (auto) 9.9 % (0.0-12.0); Neutrophils # (auto) 4.1 uL; Neutrophils % (auto) 56.2 % (37.0-80.0); Platelet Count (auto) 192 10^3/uL (140-450); Red Blood Cells 4.46 10^6/uL (4.5-5.90); Red Cell Distribution Width 13.5 % (11.8-14.3); White Blood Cell 7.2 10^3/uL (4.4-10.8)
[2019-07-14 06:11] LABS: Calcium 8.7 mg/dL (8.5-10.1); INR 1.13 (0.9-1.15); Partial Thromboplastin Time 25.1 sec (23.64-32.05); Potassium 4.4 mmol/L (3.5-5.1)
[2019-07-14] MEDS: SODIUM CHLORIDE 0.9% 1,000 ML IV SCH (06:48)
--- NOTE | 2019-07-14 07:25 | NUR ---
OPENING SHIFT NOTE Patient awake and alert sitting on bedside. No S/S of distress/SOB/pain noted/reported. Patient instructed on POC and to call for assistance if needed. Bed in low position, locked and call light within reach. Will continue to monitor Q1hr and PRN. Signed: 07/14/19 at 1237 by SRUI RIOJAS SN <Co-Signature Required> Co-Signed: 07/14/19 at 1237 by Jyothi Camara RN
[2019-07-14 08:00] VITALS: BP 137/69
[2019-07-14 09:00] VITALS: BP 152/86
[2019-07-14] MEDS: ATENOLOL 50 MG TAB PO SCH (10:07)
--- NOTE | 2019-07-14 11:10 | NUR ---
CARDIOLOGY DR RUCKER AT BEDSIDE, NEW ORDERS RECEIVED TO DC ATENOLOL AND INCREASE LISINOPRIL 40MG PO QD, RBO, CONT CARE Addendum: 07/14/19 at 1713 by Jyothi Camara RN Dr Rucker, states patient has to stop taken atenolol for 12-48hrs and he will be re-evaluated for pacemaker as outpatient, will talk with Dr Melendez
[2019-07-14] MEDS ORDERED: LISINOPRIL 10 MG TAB PO SCH (11:15)
[2019-07-14 13:00] VITALS: BP 137/69
[2019-07-14] MEDS: ASPirin 81 mg TAB PO SCH (15:41)
[2019-07-14] MEDS: risperiDONE 1 MG TAB PO SCH (15:41)
[2019-07-14] MEDS: FAMOTIDINE 20 MG TAB PO SCH (15:42)
--- NOTE | 2019-07-14 16:00 | NUR ---
PATIENT REFUSED INFLUENZA VACCINE STATES " I ALREADY TOOK THE FLU SHOT"
--- NOTE | 2019-07-14 17:10 | NUR ---
DISCHARGE Discharge instructions given as ordered. Encourage to follow up with PMD as instructed. Appointment made to follow up with DR Oro and contact and address provided to follow up with Dr Rucker. All questions and concerns addressed. Patient verbalized understanding. Medication reconciliation form completed and copy given to patient. . IV removed with catheter intact, pressure dressing applied. Telemetry unit returned to ICU. Patient ambulated to Er front lobby with all personal belongings, met by motor coach bus driver. No distress noted at time of departure.
== END 2019-07-14 17:00 | disposition home health service (06) | DRG 308 ==
LOC: EDBD 19:14 → ER 19:15 → TELE 19:16 → TELE-WESTW 22:38
PROVIDERS: ADMIT Nurse Practitioner; ATTEND Internal Medicine
DX: I44.1 Atrioventricular block, second degree (principal); G92 Toxic encephalopathy; F20.9 Schizophrenia, unspecified; I10 Essential (primary) hypertension; F32.9 Major depressive disorder, single episode, unspecified; E11.65 Type 2 diabetes mellitus with hyperglycemia; I25.10 Atherosclerotic heart disease of native coronary artery without angina pectoris; Z79.4 Long term (current) use of insulin; Z79.82 Long term (current) use of aspirin; Z79.899 Other long term (current) drug therapy; Z80.0 Family history of malignant neoplasm of digestive organs; Z81.8 Family history of other mental and behavioral disorders; Z82.49 Family history of ischemic heart disease and other diseases of the circulatory system; Z86.73 Personal history of transient ischemic attack (TIA), and cerebral infarction without residual deficits; Z95.0 Presence of cardiac pacemaker; Z88.0 Allergy status to penicillin
CPT/HCPCS: 36415; 70450; 71045; 78452; 80048; 80053; 80061; 80307; 80320; 81001; 82607; 82746; 82962; 83036; 83735; 84439; 84443; 84484; 85025; 85610; 85730; 86592; 86703; 86704; 86706; 86708; 86803; 87340; 93005; 93017; 93306; 93886; 96360; G0378; J0153; J1815

== ENCOUNTER 2021-02-10 12:07 | Inpatient (IN) | payer OTHER, MEDICAID ==
[~2021-02-10] VITALS: Ht 182.9 cm; Wt 65.8 kg
[~2021-02-10 12:07] MED LIST changes: -AMI25T PO; +AMIT25TA10 PO; +LISI-716 PO; -LISI10TA6 PO
[2021-02-10 13:45] LABS: Basophils # (auto) 0 10 ^3/uL (0-0.2); Basophils % (auto) 0.3 % (0.0-2.0); Eosinophils # (auto) 0 10 ^3/uL (0-0.8); Eosinophils % (auto) 0.4 % (0.0-7.0); Hematocrit 43.5 % (41.0-53.0); Hemoglobin 14.5 g/dL (13.5-17.5); Lymphocytes # (auto) 1.1 10 ^3/uL (0.4-5.4); Lymphocytes % (auto) 17.8 % (10.0-50.0); Mean Corpuscular Hemoglobin 28.2 pg (28.0-32.0); Mean Corpuscular Hgb Conc. 33.4 g/dL (32.0-36.0); Mean Corpuscular Volume 84.2 fL (80.0-100.0); Monocytes # (auto) 0.5 10 ^3/uL (0-1.3); Monocytes % (auto) 8.6 % (0.0-12.0); Neutrophils # (auto) 4.6 10 ^3/uL (1.6-8.6); Neutrophils % (auto) 72.9 % (37.0-80.0); Nucleated Red Blood Cells % 0.1 %; Red Blood Cells 5.17 10^6/uL (4.5-5.90); Red Cell Distribution Width 16.1 % (11.8-14.3); White Blood Cell 6.3 10^3/uL (4.4-10.8)
[2021-02-10 14:01] LABS: Alanine Aminotransferase 24 U/L (16-61); Albumin 3.3 g/dL (3.4-5.0); Anion Gap 13 (5-15); Aspartate Aminotransferase 18 U/L (15-37); Blood Urea Nitrogen 36 mg/dL (7-18); Carbon Dioxide 19 mmol/L (21-32); Chloride 105 mmol/L (98-107); GFR African American 41 mL/min; GFR Non-African American 34 mL/min; Glucose 109 mg/dL (74-106); Potassium 5.3 mmol/L (3.5-5.1); Sodium 137 mmol/L (136-145)
[2021-02-10 14:06] LABS: Alkaline Phosphatase 82 U/L (45-117); Bilirubin, Total 0.6 mg/dL (0.2-1.0); Total Protein 6.7 g/dL (6.4-8.2)
[2021-02-10] MEDS ORDERED: metroNIDAZOLE 500MG/100ML 100 ML IV ONE (16:00)
[2021-02-10] MEDS ORDERED: SODIUM CHLORIDE 0.9% 500 ML IVB ONE (16:00)
[2021-02-10] MEDS ORDERED: ONDANSETRON HCL 4 MG/2 ML VIAL IV ONE ×2 (16:00→19:00)
[2021-02-10] MEDS ORDERED: SODIUM CHLORIDE 0.9% 1,000 ML IV ONE (16:00)
[2021-02-10] MEDS ORDERED: cefTRIAXone 1GM/50ML D5W 50 ML IV ONE (16:00)
[2021-02-10] MEDS ORDERED: HYDROmorphone HCL 2 MG/ML VL IV ONE ×3 (16:00→21:15)
[2021-02-10 16:28] LABS: Magnesium 2.2 mg/dL (1.6-2.6)
[2021-02-10] MEDS ORDERED: NITROGLYCERIN 0.4 MG SL TAB SL PRN ×2 (16:45→17:30)
[2021-02-10] MEDS ORDERED: MORPHINE SULF INJ 2 MG/ML SYRINGE 1ML IV PRN ×5 (16:45→17:30)
[2021-02-10] MEDS ORDERED: LORazepam 2MG/ML-1ML VIAL IV PRN ×2 (17:00→17:30)
[2021-02-10] MEDS ORDERED: levoFLOXacin 500MG 100 ML IV ONE ×4 (17:00→19:47)
[2021-02-10] MEDS ORDERED: PANTOPRAZOLE 40 MG/10 ML VIAL INJ IV ONE ×3 (17:00→19:00)
[2021-02-10] MEDS ORDERED: SODIUM CHLORIDE 0.9% 1,000 ML IV SCH (17:00)
[2021-02-10] MEDS ORDERED: fentaNYL CITRATE 5 ML ONE (17:03)
[2021-02-10] MEDS ORDERED: DexAMETHasone SOD PHOS 10MG/1ML VIAL INJ ONE (17:03)
[2021-02-10] MEDS ORDERED: ETOMIDATE (2MG/ML) 20ML VIAL IV ONE (17:03)
[2021-02-10] MEDS ORDERED: MIDAZOLAM HCL 2MG/2ML 2ml VIAL (1mg/ml) ONE ×2 (17:03→20:42)
[2021-02-10] MEDS ORDERED: ROCURONIUM 10MG/ML 10ML VIAL IV ONE (17:03)
[2021-02-10] MEDS ORDERED: HYDROmorphone HCL 2 MG/ML VL ONE ×3 (17:03→23:09)
[2021-02-10] MEDS ORDERED: GLYCOPYRROLATE 0.2 MG/ML 1ML VIAL ONE ×2 (17:03→19:03)
[2021-02-10] MEDS ORDERED: LIDOCAINE 2% (LOCAL ANESTH.) PF 5ml SDV ONE (17:03)
[2021-02-10] MEDS ORDERED: fentaNYL CITRATE 100 MCG/2 ML VL ONE (17:03)
[2021-02-10] MEDS ORDERED: ONDANSETRON HCL 4 MG/2 ML VIAL ONE (17:03)
[2021-02-10] MEDS ORDERED: PROPOFOL 10 MG/ML 20 ML IV ONE (17:04)
[2021-02-10] MEDS ORDERED: ePHEDrine SULFATE 50 MG/ML AMP ONE (17:04)
[2021-02-10] MEDS: SODIUM CHLORIDE 0.9% 1,000 ML IV SCH (17:30)
[2021-02-10 17:33] LABS: Lactic Acid w/Reflex 4.6 mmol/L (0.4-2.0)
[2021-02-10 17:48] LABS: INR 1.08 (0.9-1.15)
[2021-02-10] MEDS ORDERED: SODIUM CHLORIDE 0.9% 2,000 ML IV ONE (19:00)
[2021-02-10] MEDS ORDERED: D5W/SOD CHL 0.45%/KCL 20MEQ 1,000 ML IV ONE (19:00)
[2021-02-10] MEDS ORDERED: NEOSTIGMINE 1 MG/ML INJ (10mg/10ML VIAL) ONE (19:03)
[2021-02-10 19:21] VITALS: BP 105/57
[2021-02-10] MEDS ORDERED: HYDROmorphone HCL 2 MG/ML VL IV PRN (19:30)
[2021-02-10] MEDS ORDERED: ACCU-CHEK COMFORT CURVE STRIP VI ONE (19:30)
[2021-02-10] MEDS ORDERED: SODIUM CHLORIDE 0.9% 1,900 ML IV ONE (20:00)
[2021-02-10 20:41] VITALS: BP 177/87
[2021-02-10] MEDS ORDERED: fentaNYL CITRATE 100 MCG/2 ML VL IV PRN (20:45)
[2021-02-10] MEDS ORDERED: MIDAZOLAM HCL 2MG/2ML 2ml VIAL (1mg/ml) IV PRN (20:45)
[2021-02-10] MEDS ORDERED: MIDAZOLAM HCL 2MG/2ML 2ml VIAL (1mg/ml) IM ONE (20:45)
[2021-02-10] MEDS: PROPOFOL 100 ML IV SCH (21:05)
[2021-02-10 21:52] VITALS: BP 138/82
[2021-02-10] MEDS ORDERED: metroNIDAZOLE 500MG/100ML 100 ML IV SCH (22:00)
[2021-02-10] MEDS: metroNIDAZOLE 500MG/100ML 100 ML IV SCH (22:13)
[2021-02-10 22:58] LABS: BUN/Creatinine Ratio 22.1; Calcium 7.5 mg/dL (8.5-10.1)
[2021-02-11] VITALS (42 sets, daily range): BP systolic 93–178; BP diastolic 56–96
[2021-02-11 00:04] LABS: Potassium 5.7 mmol/L (3.5-5.1)
[2021-02-11 03:14] LABS: Basophils # (auto) 0 10 ^3/uL (0-0.2); Basophils % (auto) 0.3 % (0.0-2.0); Eosinophils # (auto) 0 10 ^3/uL (0-0.8); Eosinophils % (auto) 0.1 % (0.0-7.0); Hematocrit 34.7 % (41.0-53.0); Hemoglobin 11.5 g/dL (13.5-17.5); Lymphocytes # (auto) 1.6 10 ^3/uL (0.4-5.4); Lymphocytes % (auto) 11.7 % (10.0-50.0); Mean Corpuscular Hemoglobin 27.7 pg (28.0-32.0); Mean Corpuscular Hgb Conc. 33.2 g/dL (32.0-36.0); Mean Corpuscular Volume 83.6 fL (80.0-100.0); Monocytes # (auto) 0.8 10 ^3/uL (0-1.3); Monocytes % (auto) 6.1 % (0.0-12.0); Neutrophils # (auto) 11.3 10 ^3/uL (1.6-8.6); Neutrophils % (auto) 81.8 % (37.0-80.0); Nucleated Red Blood Cells % 0.1 %; Red Blood Cells 4.15 10^6/uL (4.5-5.90); Red Cell Distribution Width 15.7 % (11.8-14.3); White Blood Cell 13.8 10^3/uL (4.4-10.8)
[2021-02-11 03:25] LABS: Albumin 2.4 g/dL (3.4-5.0); Calcium 7.1 mg/dL (8.5-10.1)
[2021-02-11 03:29] LABS: BUN/Creatinine Ratio 21.8; Bilirubin, Total 0.4 mg/dL (0.2-1.0)
[2021-02-11 03:31] LABS: Potassium 5.9 mmol/L (3.5-5.1)
[2021-02-11] MEDS ORDERED: SODIUM BICARBONATE 8.4% INJ 50ML SYRINGE ONE (04:03)
[2021-02-11] MEDS ORDERED: DEXTROSE 50% SYRINGE 50 ML IV ONE (04:03)
[2021-02-11] MEDS ORDERED: CALCIUM GLUC 1,000mg/50ml-NS 50 ML IV ONE ×2 (04:06→04:15)
[2021-02-11] MEDS ORDERED: InsuLIN REG 1unit/0.01ml Soln (100units/ml) IV ONE (04:15)
[2021-02-11] MEDS ORDERED: DEXTROSE (50%) 50ML SYRG IV ONE (04:15)
[2021-02-11] MEDS ORDERED: SODIUM BICARBONATE 8.4 % INJ 50ML VIAL IV ONE (04:15)
[2021-02-11] MEDS: SODIUM CHLORIDE 0.9% 1,000 ML IV SCH ×3 (04:18→13:35)
[2021-02-11] MEDS: metroNIDAZOLE 500MG/100ML 100 ML IV SCH ×3 (06:18→21:49)
[2021-02-11] MEDS: PROPOFOL 100 ML IV SCH (06:19)
[2021-02-11] MEDS ORDERED: PANTOPRAZOLE 40 MG/10 ML VIAL INJ IV SCH (10:00)
[2021-02-11] MEDS ORDERED: levoFLOXacin 500MG 100 ML IV SCH (10:00)
[2021-02-11 10:07] LABS: Calcium 7.7 mg/dL (8.5-10.1); Potassium 4.7 mmol/L (3.5-5.1)
[2021-02-11] MEDS: PANTOPRAZOLE 40 MG/10 ML VIAL INJ IV SCH (10:17)
[2021-02-11] MEDS: levoFLOXacin 500MG 100 ML IV SCH (10:17)
[2021-02-11] MEDS: MORPHINE SULF INJ 2 MG/ML SYRINGE 1ML IV PRN (21:03)
[2021-02-12] VITALS (13 sets, daily range): BP systolic 136–169; BP diastolic 74–92
[2021-02-12] MEDS: SODIUM CHLORIDE 0.9% 1,000 ML IV SCH ×3 (02:00→14:21)
[2021-02-12] MEDS: metroNIDAZOLE 500MG/100ML 100 ML IV SCH ×3 (06:00→21:36)
[2021-02-12] MEDS: PANTOPRAZOLE 40 MG/10 ML VIAL INJ IV SCH (09:02)
[2021-02-12] MEDS: levoFLOXacin 500MG 100 ML IV SCH (09:02)
[2021-02-13] MEDS: SODIUM CHLORIDE 0.9% 1,000 ML IV SCH (02:04)
[2021-02-13 05:00] VITALS: BP 165/92
[2021-02-13 05:07] LABS: Basophils # (auto) 0 10 ^3/uL (0-0.2); Basophils % (auto) 0.1 % (0.0-2.0); Eosinophils # (auto) 0 10 ^3/uL (0-0.8); Hematocrit 33.7 % (41.0-53.0); Hemoglobin 11.6 g/dL (13.5-17.5); Lymphocytes # (auto) 0.8 10 ^3/uL (0.4-5.4); Lymphocytes % (auto) 6.7 % (10.0-50.0); Mean Corpuscular Hemoglobin 28.2 pg (28.0-32.0); Mean Corpuscular Hgb Conc. 34.3 g/dL (32.0-36.0); Mean Corpuscular Volume 82.3 fL (80.0-100.0); Monocytes # (auto) 0.7 10 ^3/uL (0-1.3); Monocytes % (auto) 6.3 % (0.0-12.0); Neutrophils # (auto) 10.1 10 ^3/uL (1.6-8.6); Neutrophils % (auto) 86.9 % (37.0-80.0); Red Cell Distribution Width 16.2 % (11.8-14.3); White Blood Cell 11.6 10^3/uL (4.4-10.8)
[2021-02-13 05:31] LABS: BUN/Creatinine Ratio 22.6; Calcium 8.1 mg/dL (8.5-10.1); Phosphorus 3.3 mg/dL (2.5-4.90); Potassium 3.9 mmol/L (3.5-5.1)
[2021-02-13] MEDS: metroNIDAZOLE 500MG/100ML 100 ML IV SCH ×3 (06:03→21:13)
[2021-02-13 06:28] LABS: Urine Bacteria FEW /hpf (None Seen); Urine Blood 3+ /uL (Negative); Urine Mucus FEW (None Seen); Urine Specific Gravity 1.018 (1.001-1.035); Urine WBC 30 /hpf (0 - 3)
[2021-02-13 06:41] LABS: Protein, Urine 66.1 mg/dL (0.0-11.9)
[2021-02-13 09:00] VITALS: BP 162/88
[2021-02-13] MEDS: PANTOPRAZOLE 40 MG/10 ML VIAL INJ IV SCH (10:19)
[2021-02-13] MEDS: levoFLOXacin 500MG 100 ML IV SCH (10:19)
[2021-02-13] MEDS: SOD CHL 0.45% 1,000 ML IV SCH ×2 (10:20→21:12)
[2021-02-13 13:00] VITALS: BP 150/95
[2021-02-13 16:41] VITALS: BP 168/94
[2021-02-13 22:00] VITALS: BP 185/92
[2021-02-14 05:26] VITALS: BP 176/89
[2021-02-14] MEDS: metroNIDAZOLE 500MG/100ML 100 ML IV SCH ×3 (05:30→22:00)
[2021-02-14] MEDS: SOD CHL 0.45% 1,000 ML IV SCH ×3 (06:00→22:33)
[2021-02-14 09:00] VITALS: BP 169/85
[2021-02-14] MEDS: levoFLOXacin 500MG 100 ML IV SCH (10:00)
[2021-02-14] MEDS: risperiDONE 1 MG TAB PO SCH (10:00)
[2021-02-14] MEDS: PANTOPRAZOLE 40 MG/10 ML VIAL INJ IV SCH (10:00)
[2021-02-14] MEDS ORDERED: ATENOLOL 50 MG TAB PO ONE (10:00)
[2021-02-14 10:18] LABS: Calcium 8.3 mg/dL (8.5-10.1); Potassium 3.7 mmol/L (3.5-5.1)
[2021-02-14] MEDS: LABETALOL HCL 5 MG/ML 4ML SYRINGE IV PRN ×2 (12:47→22:34)
[2021-02-14] MEDS: MORPHINE SULF INJ 2 MG/ML SYRINGE 1ML IV PRN (12:48)
[2021-02-14 13:00] VITALS: BP_SYST 190; BP_SYST 193; BP_SYST 208; BP_DIAS 100; BP_DIAS 104; BP_DIAS 110
[2021-02-14 16:51] VITALS: BP 187/97
[2021-02-14] MEDS ORDERED: CANA100T PO (18:18)
[2021-02-14] MEDS ORDERED: VALS80TA44 PO (18:27)
[2021-02-14] MEDS ORDERED: NAP500T PO (18:27)
[2021-02-14] MEDS ORDERED: LISI20TA28 PO (18:27)
[2021-02-14] MEDS ORDERED: QUET400T12 PO (18:28)
[2021-02-14] MEDS ORDERED: INSLANTI SC (18:28)
[2021-02-14] MEDS: AMITRIPTYLINE HCL 25 MG TAB PO SCH (21:03)
[2021-02-14 22:00] VITALS: BP 190/93
[2021-02-14 23:30] VITALS: BP 149/94
[2021-02-15 05:00] VITALS: BP 177/91
[2021-02-15] MEDS: metroNIDAZOLE 500MG/100ML 100 ML IV SCH ×3 (05:19→21:37)
[2021-02-15] MEDS: LABETALOL HCL 5 MG/ML 4ML SYRINGE IV PRN ×2 (05:19→15:00)
[2021-02-15] MEDS: SOD CHL 0.45% 1,000 ML IV SCH ×4 (05:29→23:37)
[2021-02-15 05:56] LABS: Calcium 8.2 mg/dL (8.5-10.1); Potassium 3.7 mmol/L (3.5-5.1)
[2021-02-15 06:01] LABS: BUN/Creatinine Ratio 22.1
[2021-02-15 09:00] VITALS: BP 171/89
[2021-02-15] MEDS: PANTOPRAZOLE 40 MG/10 ML VIAL INJ IV SCH (09:24)
[2021-02-15] MEDS: ATENOLOL 50 MG TAB PO SCH (09:24)
[2021-02-15] MEDS: levoFLOXacin 500MG 100 ML IV SCH (09:25)
[2021-02-15] MEDS: risperiDONE 1 MG TAB PO SCH (10:00)
[2021-02-15] MEDS ORDERED: GASTROGRAFIN 120 ML SOL ONE ×2 (11:38→14:06)
[2021-02-15] MEDS ORDERED: EZ-GAS II GRANULES (RADIOLOGY USE) PO ONE ×2 (11:39→14:06)
[2021-02-15 12:00] VITALS: BP 173/87
[2021-02-15 17:00] VITALS: BP 172/91
[2021-02-15] MEDS: AMITRIPTYLINE HCL 25 MG TAB PO SCH (21:01)
[2021-02-15 22:00] VITALS: BP 160/74
[2021-02-16] MEDS: SOD CHL 0.45% 1,000 ML IV SCH ×3 (00:31→18:00)
[2021-02-16 05:00] VITALS: BP 177/91
[2021-02-16] MEDS: metroNIDAZOLE 500MG/100ML 100 ML IV SCH ×3 (05:40→21:37)
[2021-02-16] MEDS: LABETALOL HCL 5 MG/ML 4ML SYRINGE IV PRN ×2 (05:42→11:45)
[2021-02-16 09:00] VITALS: BP 184/89
[2021-02-16] MEDS: risperiDONE 1 MG TAB PO SCH (09:33)
[2021-02-16] MEDS: levoFLOXacin 500MG 100 ML IV SCH (10:00)
[2021-02-16] MEDS: PANTOPRAZOLE 40 MG/10 ML VIAL INJ IV SCH (10:10)
[2021-02-16] MEDS: ATENOLOL 50 MG TAB PO SCH (10:11)
[2021-02-16 14:00] VITALS: BP 181/101
[2021-02-16 17:00] VITALS: BP 174/101
[2021-02-16] MEDS: AMITRIPTYLINE HCL 25 MG TAB PO SCH (21:37)
[2021-02-16 22:00] VITALS: BP 146/86
[2021-02-17] MEDS: SOD CHL 0.45% 1,000 ML IV SCH ×2 (04:00→14:00)
[2021-02-17 05:00] VITALS: BP 158/93
[2021-02-17] MEDS: metroNIDAZOLE 500MG/100ML 100 ML IV SCH ×3 (05:34→22:38)
[2021-02-17 06:24] LABS: Basophils # (auto) 0 10 ^3/uL (0-0.2); Basophils % (auto) 0.2 % (0.0-2.0); Eosinophils # (auto) 0.2 10 ^3/uL (0-0.8); Eosinophils % (auto) 2.4 % (0.0-7.0); Hematocrit 32.3 % (41.0-53.0); Hemoglobin 11.4 g/dL (13.5-17.5); Lymphocytes # (auto) 1.9 10 ^3/uL (0.4-5.4); Lymphocytes % (auto) 19.2 % (10.0-50.0); Mean Corpuscular Hemoglobin 28.6 pg (28.0-32.0); Mean Corpuscular Hgb Conc. 35.4 g/dL (32.0-36.0); Mean Corpuscular Volume 80.8 fL (80.0-100.0); Monocytes # (auto) 1.1 10 ^3/uL (0-1.3); Monocytes % (auto) 10.6 % (0.0-12.0); Neutrophils # (auto) 6.7 10 ^3/uL (1.6-8.6); Neutrophils % (auto) 67.6 % (37.0-80.0); Nucleated Red Blood Cells % 0.1 %; Red Cell Distribution Width 16.2 % (11.8-14.3)
[2021-02-17 06:43] LABS: BUN/Creatinine Ratio 16.3; Potassium 3.5 mmol/L (3.5-5.1)
[2021-02-17 09:00] VITALS: BP 148/80
[2021-02-17] MEDS: levoFLOXacin 500MG 100 ML IV SCH (10:00)
[2021-02-17] MEDS: risperiDONE 1 MG TAB PO SCH (10:00)
[2021-02-17] MEDS: ATENOLOL 50 MG TAB PO SCH (10:00)
[2021-02-17] MEDS: PANTOPRAZOLE 40 MG/10 ML VIAL INJ IV SCH (10:00)
[2021-02-17 13:00] VITALS: BP 116/72
[2021-02-17 17:00] VITALS: BP 136/82
[2021-02-17 21:56] VITALS: BP 123/85
[2021-02-17] MEDS: AMITRIPTYLINE HCL 25 MG TAB PO SCH (22:38)
[2021-02-18 05:21] VITALS: BP 149/83
[2021-02-18] MEDS: metroNIDAZOLE 500MG/100ML 100 ML IV SCH ×4 (06:00→22:01)
[2021-02-18 07:08] LABS: Albumin 2.1 g/dL (3.4-5.0); Calcium 7.8 mg/dL (8.5-10.1); Potassium 4.3 mmol/L (3.5-5.1)
[2021-02-18 07:12] LABS: BUN/Creatinine Ratio 16.4; Bilirubin, Total 0.4 mg/dL (0.2-1.0); Total Protein 5.1 g/dL (6.4-8.2)
[2021-02-18 09:00] VITALS: BP 149/89
[2021-02-18] MEDS: SOD CHL 0.45% 1,000 ML IV SCH ×2 (09:57)
[2021-02-18] MEDS: levoFLOXacin 500MG 100 ML IV SCH (09:57)
[2021-02-18] MEDS: PANTOPRAZOLE 40 MG/10 ML VIAL INJ IV SCH (09:57)
[2021-02-18] MEDS: risperiDONE 1 MG TAB PO SCH (09:58)
[2021-02-18] MEDS: ATENOLOL 50 MG TAB PO SCH (09:58)
[2021-02-18 13:00] VITALS: BP 151/85
[2021-02-18 17:00] VITALS: BP 147/78
[2021-02-18 22:00] VITALS: BP 184/98
[2021-02-18] MEDS: AMITRIPTYLINE HCL 25 MG TAB PO SCH (22:01)
[2021-02-18] MEDS: LABETALOL HCL 5 MG/ML 4ML SYRINGE IV PRN (22:02)
[2021-02-19] MEDS: LABETALOL HCL 5 MG/ML 4ML SYRINGE IV PRN ×2 (04:17→16:58)
[2021-02-19 05:00] VITALS: BP 159/86
[2021-02-19] MEDS: metroNIDAZOLE 500MG/100ML 100 ML IV SCH ×3 (06:29→21:42)
[2021-02-19 06:49] LABS: Albumin 2.2 g/dL (3.4-5.0); Calcium 8.2 mg/dL (8.5-10.1); Potassium 4.4 mmol/L (3.5-5.1)
[2021-02-19 06:52] LABS: BUN/Creatinine Ratio 18.3; Bilirubin, Total 0.3 mg/dL (0.2-1.0); Total Protein 5.2 g/dL (6.4-8.2)
[2021-02-19 09:00] VITALS: BP 161/94
[2021-02-19] MEDS: ATENOLOL 50 MG TAB PO SCH (10:15)
[2021-02-19] MEDS: risperiDONE 1 MG TAB PO SCH (10:15)
[2021-02-19] MEDS: PANTOPRAZOLE 40 MG/10 ML VIAL INJ IV SCH (10:16)
[2021-02-19] MEDS: levoFLOXacin 500MG 100 ML IV SCH (10:16)
[2021-02-19] MEDS ORDERED: ACCU-CHEK COMFORT CURVE STRIP VI ONE (11:00)
[2021-02-19] MEDS ORDERED: DEXTROSE (50%) 50ML SYRG IV PRN (11:15)
[2021-02-19] MEDS: ACCU-CHEK COMFORT CURVE STRIP VI SCH ×3 (11:45→23:49)
[2021-02-19] MEDS: InsuLIN REG 1unit/0.01ml Soln (100units/ml) SC SCH ×3 (11:45→23:55)
[2021-02-19 13:00] VITALS: BP 153/88
[2021-02-19] MEDS ORDERED: IOHEXOL 300 MG/ML 100ML BOTTLE IJ ONE (13:08)
[2021-02-19 17:00] VITALS: BP 162/93
[2021-02-19] MEDS: AMITRIPTYLINE HCL 25 MG TAB PO SCH (21:42)
[2021-02-19] MEDS: INSULIN LANTUS (GLARGINE) 1 /0.01ml (100units/ml) SC SCH (21:43)
[2021-02-19 22:00] VITALS: BP 140/83
[2021-02-20 05:00] VITALS: BP 127/81
[2021-02-20] MEDS: ACCU-CHEK COMFORT CURVE STRIP VI SCH ×3 (05:27→18:00)
[2021-02-20] MEDS: metroNIDAZOLE 500MG/100ML 100 ML IV SCH (05:27)
[2021-02-20] MEDS: InsuLIN REG 1unit/0.01ml Soln (100units/ml) SC SCH ×3 (05:40→18:00)
[2021-02-20 09:00] VITALS: BP 133/80
[2021-02-20] MEDS: ATENOLOL 50 MG TAB PO SCH (10:24)
[2021-02-20] MEDS: risperiDONE 1 MG TAB PO SCH (10:24)
[2021-02-20] MEDS: PANTOPRAZOLE 40 MG/10 ML VIAL INJ IV SCH (10:24)
[2021-02-20] MEDS: levoFLOXacin 500MG 100 ML IV SCH (10:24)
[2021-02-20 13:00] VITALS: BP 127/76
[2021-02-20 17:00] VITALS: BP 130/78
[2021-02-20] MEDS: INSULIN LANTUS (GLARGINE) 1 /0.01ml (100units/ml) SC SCH (20:47)
[2021-02-20] MEDS: AMITRIPTYLINE HCL 25 MG TAB PO SCH (20:48)
[2021-02-20 22:00] VITALS: BP 129/75
[2021-02-21] MEDS: ACCU-CHEK COMFORT CURVE STRIP VI SCH ×3 (01:06→11:32)
[2021-02-21] MEDS: InsuLIN REG 1unit/0.01ml Soln (100units/ml) SC SCH ×3 (01:07→11:33)
[2021-02-21 05:00] VITALS: BP 125/74
[2021-02-21 09:00] VITALS: BP 140/80
[2021-02-21] MEDS: PANTOPRAZOLE 40 MG/10 ML VIAL INJ IV SCH (10:15)
[2021-02-21] MEDS: risperiDONE 1 MG TAB PO SCH (10:15)
[2021-02-21] MEDS: ATENOLOL 50 MG TAB PO SCH (10:16)
== END 2021-02-21 14:06 | disposition home or self-care (01) | DRG 853 ==
LOC: ER 12:07 → EDBD 12:07 → TELE 16:54 → ER 17:20 → DOU IN ICU 23:55 → TELE-WESTW 02-12 12:05
PROVIDERS: ADMIT Internal Medicine; ATTEND Family Medicine
PROC: 5A1935Z Respiratory Ventilation, Less than 24 Consecutive Hours (ICD-10-PCS; 2021-02-10)
PROC: 0BH17EZ Insertion of Endotracheal Airway into Trachea, Via Natural or Artificial Opening (ICD-10-PCS; 2021-02-10)
PROC: 0DU607Z Supplement Stomach with Autologous Tissue Substitute, Open Approach (ICD-10-PCS; principal; 2021-02-10 17:53)
PROC: 5A1935Z Respiratory Ventilation, Less than 24 Consecutive Hours (ICD-10-PCS; 2021-02-11)
PROC: 5A1935Z Respiratory Ventilation, Less than 24 Consecutive Hours (ICD-10-PCS; 2021-02-12)
DX: A41.9 Sepsis, unspecified organism (principal); R65.21 Severe sepsis with septic shock; J96.01 Acute respiratory failure with hypoxia; K25.5 Chronic or unspecified gastric ulcer with perforation; N17.0 Acute kidney failure with tubular necrosis; E87.0 Hyperosmolality and hypernatremia; E44.1 Mild protein-calorie malnutrition; K86.1 Other chronic pancreatitis; E87.2 Acidosis; E87.5 Hyperkalemia; E11.21 Type 2 diabetes mellitus with diabetic nephropathy; E86.0 Dehydration; F20.9 Schizophrenia, unspecified; N18.32 Chronic kidney disease, stage 3b; Z20.822 Contact with and (suspected) exposure to COVID-19; Z88.0 Allergy status to penicillin; E11.22 Type 2 diabetes mellitus with diabetic chronic kidney disease; E11.65 Type 2 diabetes mellitus with hyperglycemia; F17.210 Nicotine dependence, cigarettes, uncomplicated; I12.9 Hypertensive chronic kidney disease with stage 1 through stage 4 chronic kidney disease, or unspecified chronic kidney disease; F31.9 Bipolar disorder, unspecified; K59.00 Constipation, unspecified; Z79.4 Long term (current) use of insulin; Z80.0 Family history of malignant neoplasm of digestive organs; Z81.8 Family history of other mental and behavioral disorders; Z82.0 Family history of epilepsy and other diseases of the nervous system; Z82.49 Family history of ischemic heart disease and other diseases of the circulatory system; Z68.20 Body mass index [BMI] 20.0-20.9, adult; N18.2 Chronic kidney disease, stage 2 (mild); F12.90 Cannabis use, unspecified, uncomplicated
CPT/HCPCS: 36415; 36600; 71045; 74176; 74177; 74246; 76775; 80048; 80053; 81001; 82550; 82570; 82805; 82962; 83036; 83605; 83690; 83735; 84100; 84156; 84300; 84484; 85025; 85049; 85610; 85730; 86850; 86900; 86901; 87070; 87075; 87081; 87205; 87426; 93005; 94002; 94003; 94640; 96374; 96375; 97163; C9113; G0378; J0696; J1100; J1815; J1956; J2001; J2250; J2405; J2704; J3490